=== PATIENT | female | born 1950 | race Caucasian/White ===

== ENCOUNTER → 2016-09-25 | Outpatient (CLI) | payer OTHER ==
[2016-05-13 07:57] VITALS: BP 113/65
--- NOTE | 2016-09-25 13:56 | CT ---
STUDY: CT PARANASAL SINUSES WITHOUT CONTRAST HISTORY: Chronic lu-ethmoidal sinusitis. Comparison: CT sinuses from August 09, 2016. Technique: Multiple axial images of the paranasal sinuses were obtained without the administration o f IV contrast. Coronal and sagittal reformats were performed and reviewed. Automated exposure contr ol (AEC) was utilized to adjust the MA and/or kV. Findings: Axial images: There is mild mucosal thickening in the right maxillary sinus, and to a lesser extent in the left maxillary sinus. Previously noted air-fluid level right maxillary sinus is resolved. The re is mild mucosal thickening in several ethmoid air cells. The frontal sinus and sphenoid sinus pre dominately clear. No air-fluid levels are identified. There is no evidence of osteoneogenesis. The r etro antral fat is clear. The nasal cavity is within normal limits. There is no significant nasal se ptal deviation. The nasal bone is intact. Reformatted images: The ethmoid roofs are slightly higher on the right than the left. The lamina pap yracea is intact bilaterally. There is no evidence of orbital blowout. The ostiomeatal units are wid ened and predominantly clear. No signficant odontogenic abnormality is identified. Mastoid air cells and middle ear cavities are predominately clear. IMPRESSION: 1. Mild mucosal thickening in maxillary and ethmoid sinuses as described. No evidence of acute sinu sitis at this time. 2. Normal appearing mastoid air cells and middle ear cavities bilaterally. Reported By:
== END ==
LOC: RAD 10:48
PROVIDERS: ATTEND Nurse Practitioner Family
DX: J32.2 Chronic ethmoidal sinusitis (principal)
CPT/HCPCS: 70486

== ENCOUNTER → 2016-10-23 | Outpatient (CLI) | payer OTHER ==
[2016-05-13 07:57] VITALS: BP 113/65
--- NOTE | 2016-10-23 14:51 | CT ---
HISTORY: Osteoporosis, back pain Study: CT thoracic spine without contrast Comparison: Chest CT 11/25/2014 Technique: Multiple axial images of the thoracic spine were obtained from the thoracic inlet to the thoracolumbar junction. Sagittal and coronal reconstructions were performed and reviewed. Dose red uction techniques including Automated Exposure Control (AEC) and adjustment of mA and kV were utiliz ed. Findings: Normal alignment of the thoracic spine is maintained. Vertebral body heights are preserved. The di sc spaces are normal. The posterior elements and central canal appear unremarkable. No significant p araspinal soft tissue injury can be identified. The visualized lungs are clear. There is osteopenia noted which reduces sensitivity to detect nondisplaced fractures. There is a large hiatal hernia wit h partial intrathoracic stomach. There is a partially visualized pacemaker in the left chest wall. IMPRESSION: 1.No acute osseous abnormality of the thoracic spine. Reported By:
--- NOTE | 2016-10-23 14:56 | CT ---
HISTORY: Osteoporosis, back pain Study: CT lumbar spine without contrast Comparison: None Technique: Multiple axial images of the lumbar spine were obtained from the thoracolumbar junction to the sacrum without the administration of IV contrast. Sagittal and coronal reformats were perfor med and reviewed. Dose reduction techniques including Automated Exposure Control (AEC) and adjustme nt of mA and kV were utilized. Findings: Alignment of the lumbar spine is maintained. No evidence for acute fracture or subluxation identifi ed. Vertebral body heights are preserved. There is degenerative disc space narrowing and vacuum phe nomenon at L2-L3. There is associated disc space narrowing anteriorly where large sclerotic osteophy mando are noted. The disc spaces are otherwise within normal limits. There is diffuse lumbar spondylos is. Facet joints are unremarkable. No significant facet joint arthropathy. There is extensive sigmo id diverticulosis noted. Prior cholecystectomy. The surrounding soft tissues are otherwise unremarka ble. IMPRESSION: 1. Degenerative disc disease most prominent at L2-L3 as described. 2. No acute osseous abnormality of the lumbar spine. Reported By:
== END | disposition home or self-care (01) | DRG 552 ==
LOC: RAD 13:54
PROVIDERS: ATTEND Psychiatry & Neurology Neurology
DX: M54.89 Other dorsalgia (principal); M47.896 Other spondylosis, lumbar region; M51.36 Other intervertebral disc degeneration, lumbar region
CPT/HCPCS: 72128; 72131

== ENCOUNTER → 2016-12-13 | Outpatient (CLI) | payer OTHER ==
[2016-05-13 07:57] VITALS: BP 113/65
[2016-12-13 11:23] LABS: C-REACTIVE PROTEIN 1.6 mg/L (0-3.0); CHOL/HDL RATIO 3.2 (0.0-5.0); URIC ACID 5.8 mg/dL (2.6-6.0)
== END ==
LOC: LAB 10:13
PROVIDERS: ATTEND Nurse Practitioner Family
DX: E78.4 Other hyperlipidemia (principal); M25.571 Pain in right ankle and joints of right foot; M79.671 Pain in right foot; M79.672 Pain in left foot
CPT/HCPCS: 36415; 80061; 84550; 85652; 86140

== ENCOUNTER 2016-12-21 15:02 | Emergency (ER) | payer OTHER ==
[2016-12-21 15:08] VITALS: BP 120/80; BMI 35.1
[2016-12-21] MEDS ORDERED: FLAGYL TAB 500 MG PO STA (15:29)
[2016-12-21] MEDS ORDERED: ROCEPHIN VIAL 1 GM IM ONE (15:29)
[2016-12-21] MEDS ORDERED: DEMEROL INJ IM ONE (15:29)
[2016-12-21] MEDS ORDERED: PHENERGAN INJ 25 MG IM ONE (15:30)
[2016-12-21] MEDS ORDERED: DEMEROL INJ ONE (15:33)
[2016-12-21] MEDS ORDERED: XYLOCAINE 1 % (PLAIN) ONE (15:33)
[2016-12-21] MEDS ORDERED: PHENERGAN INJ 25 MG ONE (15:33)
[2016-12-21] MEDS ORDERED: ROCEPHIN VIAL 1 GM ONE (15:33)
[2016-12-21] MEDS ORDERED: FLAGYL TAB 250 MG PO ONE (15:33)
--- NOTE | 2016-12-21 15:33 | DR.GENAD ---
HPI - PCP Primary Care Physician: jayda - Complaint/Symptoms Chief Complaint Doctors Comments: Patient states she has a history of diverticulitis and she had some corn and cucumbers yesterday with left lower quadrant pain today. She denies fever, chills, cold, cough, nausea, vomiting, diarrhea, mona or hematuria. States she was admitted her with diverticulitis before and she came early to try not let it get as bad. She has been staying on her diet. Chief Complaint:: patient stated she has a hx of diverticulitis and she ate corn yesterday and today she has lower left abd pain and swelling. - Nurses notes reviewed Nurses Notes Review: Yes - Source History Provided: Patient - Mode of Arrival Mode of Arrival: Ambulatory - Timing Onset of Chief Complaint: 12/20/16 Came on: Gradually - Duration Duration: Constant How lon Duration: Days - Location Location: left lower abdominal pain - Severity Severity: Moderate - Modifying Factors Worsens:: palpation and movement Improves:: remaining still and lying down PMH - PMH Past Medical History: Yes Past Medical History: Arthritis, Hypertension, Ventricular Tachycardia Past Surgical History: Yes Surgical History: Cholecystectomy, Tonsillectomy, Other - Family History History of Family Medical Conditions: Yes Family Medical History: Diabetes Mellitus, [place], Hypertension - Social History Does patient currently use any type of tobacco product: No Have you used tobacco products in the last 12 months: No Type of Tobacco Use: None Does any household member use tobacco: No Alcohol Use: None Do you use any recreational Drugs:: No Lives With: Family Lives Where: Home - infectious screening In the last 2 months have you had wt loss of >10#?: NO Have you had fever, night sweats or hemotysis?: No Have you traveled outside the country in the last 6 months?: No Isolation: Standard ROS - Review of Systems Constitutional: No Symptoms Reported Eyes: No Symptoms Reported. negative: See HPI, Eye Pain, Blurred Vision, Tearing, Discharge, Photophobia, Diplopia, Other ENTM: No Symptoms Reported Respiratoy: No Symptoms Reported Cardiovascular: No Symptoms Reported Gastrointestinal/Abdominal: No Symptoms Reported, Abdominal Pain. negative: See HPI, Constipation, Diarrhea, Nausea, Vomiting, Food Intolerance, Other Genitourinary: No Symptoms Reported Neurological: No Symptoms Reported Musculoskeletal: No Symptoms Reported Integumentary: No Symptoms Reported Hematologic/Lymphatic: No Symptoms Reported Endocrine: No Symptoms Reported Psychiatric: No Symptoms Reported PE - Vital Signs Vitals: Temperature 98.1 F Pulse Rate 75 Respiratory Rate 16 Blood Pressure [Left Arm] 113/65 Blood Pressure [Right Arm] 104/57 Blood Pressure 120/80 O2 Sat by Pulse Oximetry 100 - General Limitations: No Limitations General Appearance: Alert, In Distress (moderate), Obese - Head Head Exam: Normal Inspection, Atraumatic, Normocephalic - Eyes Eye exam: Normal Appearance, PERRL, EOMI. negative: Scleral Icterus, Conjunctival Injection, Nystagmus, Miosis, Mydrasis, Periorbital Swelling, Periorbital Tenderness, Other - ENT ENT Exam: Normal Exam, Normal Oropharynx, Normal External Ear Exam, Mucous Membranes Moist, TM's Normal Bilaterally External Ear Exam: Normal External Inspection. negative: Auricular Hematoma, Auricular Trauma, Mastoid Tenderness, Pain with Movement, External Tenderness, Periauricular Adenopathy, Other TM/Canal Exam: Bilateral Normal Nose Exam: Normal Nose Exam Mouth Exam: Normal Inspection Throat Exam: Normal Inspection - Neck Neck Exam: Normal Inspection, Full ROM, Trachea Midline - Chest Chest Inspection: Normal Inspection, Symmetric Chest Wall Rise - Respiratory Respiratory Exam: Normal Lung Sounds Bilat Respiratory Exam: Bilateral Clear to Auscultation - Cardiovascular Cardiovascular Exam: Regular Rate, Normal Rhythm, Normal Heart Sounds. negative : Bradycardia, Tachycardia, Irregular Rhythm, Systolic Murmur, Diastolic Murmur , Rubs, Gallop, Clicks, JVD, +S1, +S2, +S3, +S4, Other - Abdominal Exam Abdominal Exam: Normal Inspection, Normal Bowel Sounds, Soft, Tenderness (left lower quadrant pain with guarding), Guarding, Dimnished Bowel Sounds Abdominal Tenderness: LLQ, Moderate - Extremities Extremities Exam: Normal Inspection, Full ROM, Normal Capillary Refill. negative: Tenderness, Edema, Joint Swelling, Calf Tenderness, Other - Back Back Exam: Normal Inspection, Full ROM. negative: Tenderness, (R) CVA Tenderness, (L) CVA Tenderness, Muscle Spasm, Paraspinal Tenderness, Vertebral Tenderness, Rashes, (R) Sciatic Notch Tenderness, (L) Sciatic Notch Tendern, (R ) Straight Leg Raise, (L) Straight Leg Raise, Other - Neurologic Neurological Exam: Alert, Oriented X3, CN II-XII Intact, Normal Gait, Reflexes Normal - Psychiatric Psychiatric Exam: Normal Affect, Normal Mood - Skin Skin Exam: Warm, Dry, Intact, Normal Color - Diagnosis Discharge Problem: Abdominal pain Diverticulosis of colon Qualifiers: Diverticulosis bleeding: diverticulosis without bleeding Qualified Code(s): K57.30 - Diverticulosis of large intestine without perforation or abscess without bleeding Diverticulitis Qualifiers: Diverticulitis site: large intestine Diverticulitis bleeding: without bleeding - Discharge Plan Disposition: HOME, SELF-CARE Condition: Stable Prescriptions: Ciprofloxacin HCl [CIPRO 500 MG TAB *] 500 mg PO Q12H #20 tab Hydrocodone-Acet 7.5 mg/325 mg [[place] 7.5/325 mg Tab] 1 tab PO Q6H PRN #28 tab PRN Reason: Pain Metronidazole [FLAGYL 500 MG *] 500 mg PO TID #30 tab - Follow ups/Referrals Follow ups/Referrals: PETAR PRESLEY [Primary Care Provider] - 3 days - Instructions Instructions: Diverticulitis, Abdominal Pain, Adult, [id number]
== END 2016-12-21 15:58 | disposition home or self-care (01) ==
LOC: ER 15:10
DX: K57.30 Diverticulosis of large intestine without perforation or abscess without bleeding (principal); K57.92 Diverticulitis of intestine, part unspecified, without perforation or abscess without bleeding; R10.32 Left lower quadrant pain
CPT/HCPCS: 96372; 99282; J0696; J2001; J2175; J2550

== ENCOUNTER → 2016-12-25 | Outpatient (CLI) | payer OTHER ==
[2016-12-21 15:08] VITALS: BP 120/80
[2016-12-25 15:34] LABS: BASOPHILS # (AUTO) 0.1 X10^3/uL (0.0-0.1); BASOPHILS % (AUTO) 0.8 % (0.2-1.0); EOSINOPHILS # (AUTO) 0.2 x10^3/uL (0.0-0.2); EOSINOPHILS % (AUTO) 2.1 % (0.9-2.9); HEMATOCRIT 39.9 % (36.0-47.0); HEMOGLOBIN 13.3 g/dL (12.0-16.0); LYMPHOCYTES # (AUTO) 1.9 X10^3/uL (1.3-2.9); LYMPHOCYTES % (AUTO) 24.1 % (21.0-51.0); MEAN CORPUSCULAR HEMOGLOBIN 28.5 pg (27.0-34.0); MEAN CORPUSCULAR HGB CONC 33.2 g/dL (33.0-35.0); MEAN CORPUSCULAR VOLUME 85.8 fL (80.0-100.0); MEAN PLATELET VOLUME 10.4 fL (7.4-11.0); MONOCYTES # (AUTO) 0.4 x10^3/uL (0.3-0.8); MONOCYTES % (AUTO) 5.3 % (0.0-13.0); NEUTROPHILS # (AUTO) 5.3 x10^3/uL (2.2-4.8); NEUTROPHILS % (AUTO) 67.7 % (42.0-75.0); PLATELET COUNT 134 X10^3/uL (150.0-450.0); RED BLOOD COUNT 4.65 X10^6/uL (3.5-5.4); RED CELL DISTRIBUTION WIDTH 14.7 % (11.6-16.5); WHITE BLOOD COUNT 7.8 X10^3/uL (3.6-10.0)
[2016-12-25 15:54] LABS: BLOOD UREA NITROGEN 9 mg/dL (7-18); CALCIUM 9.2 mg/dL (8.5-10.1); CARBON DIOXIDE 27.2 mmol/L (21-32); CHLORIDE 108 mmol/L (98-107); COR NA(FOR HYPERGLY) 142 mmol/L (136-145); GLUCOSE 148 mg/dL (65-99); SODIUM 141 mmol/L (136-145); eGFR BLACK RACES > 60 (>60); eGFR NON BLACK RACES > 60 (>60)
[2016-12-25 16:26] LABS: ERYTHROCYTE SEDIMENTATION RATE 17 MM/HOUR (0-20)
--- NOTE | 2016-12-25 16:41 | RAD ---
ACUTE ABDOMINAL SERIES CLINICAL HISTORY: 66-year-old female with acute abdominal pain and history diverticulosis. COMPARISON: Chest radiograph May 10, 2016, CT abdomen and pelvis May 10, 2016.. FINDINGS: AICD is unchanged. PA chest radiograph demonstrates normal cardiopericardial silhouette. There is no focal consolidation, pleural effusion or pneumothorax. Pulmonary vascularity is normal. Abdominal radiographs demonstrate a nonobstructive bowel gas pattern. Gas and stool are seen through out the colon. There is no small bowel distention. There is no radiographic evidence of pneumoperito neum. Imaged osseous structures are intact. Soft tissues are unremarkable. IMPRESSION: 1. No acute cardiopulmonary process. 2. Nonobstructive bowel gas pattern without radiographic evidence of pneumoperitoneum. Reported By:
== END ==
LOC: LAB 15:10
PROVIDERS: ATTEND Nurse Practitioner Family
DX: R10.84 Generalized abdominal pain (principal)
CPT/HCPCS: 36415; 74022; 80048; 85025; 85652; 86140

== ENCOUNTER → 2017-03-07 | Outpatient (CLI) | payer OTHER ==
[2017-03-07 12:02] LABS: BASOPHILS % (AUTO) 0.4 % (0.2-1.0); EOSINOPHILS # (AUTO) 0.1 x10^3/uL (0.0-0.2); EOSINOPHILS % (AUTO) 0.9 % (0.9-2.9); HEMATOCRIT 34.9 % (36.0-47.0); HEMOGLOBIN 11.8 g/dL (12.0-16.0); LYMPHOCYTES # (AUTO) 1.2 X10^3/uL (1.3-2.9); MEAN CORPUSCULAR HGB CONC 33.9 g/dL (33.0-35.0); MEAN CORPUSCULAR VOLUME 85.6 fL (80.0-100.0); MEAN PLATELET VOLUME 9.6 fL (7.4-11.0); MONOCYTES # (AUTO) 0.7 x10^3/uL (0.3-0.8); MONOCYTES % (AUTO) 6.7 % (0.0-13.0); NEUTROPHILS # (AUTO) 8.3 x10^3/uL (2.2-4.8); PLATELET COUNT 141 X10^3/uL (150.0-450.0); RED BLOOD COUNT 4.07 X10^6/uL (3.5-5.4); RED CELL DISTRIBUTION WIDTH 15.4 % (11.6-16.5); WHITE BLOOD COUNT 10.4 X10^3/uL (3.6-10.0)
[2017-03-07 12:26] LABS: ALANINE AMINOTRANSFERASE 26 Units/L (12-78); ALBUMIN 3.4 g/dL (3.4-5.0); ALKALINE PHOSPHATASE 88 Units/L (46-116); ASPARTATE AMINO TRANSFERASE 19 Units/L (15-37); BLOOD UREA NITROGEN 12 mg/dL (7-18); CALCIUM 8.8 mg/dL (8.5-10.1); CHLORIDE 106 mmol/L (98-107); CHOLESTEROL 164 mg/dL (0-200); GLUCOSE 91 mg/dL (65-99); HDL CHOLESTEROL 55 mg/dL (40-60); SODIUM 142 mmol/L (136-145); TOTAL PROTEIN 7.1 g/dL (6.4-8.2); TRIGLYCERIDES 59 mg/dL (0-150); eGFR BLACK RACES > 60 (>60); eGFR NON BLACK RACES > 60 (>60)
[2017-03-07 12:37] LABS: ERYTHROCYTE SEDIMENTATION RATE 30 MM/HOUR (0-20)
--- NOTE | 2017-03-07 13:36 | RAD ---
HISTORY: Low back pain Study: Lumbar spine AP, lateral, spot, obliques Comparison: None Findings: The bones are osteopenic. The alignment is normal. The vertebral bodies are of average height. Degene rative disc disease is present at L2-3 no spondylolysis or spondylolisthesis is identified. The pedic les are intact. The SI joints are normal. The facet joints are normal. IMPRESSION: Degenerative disc disease L2-3 Reported By:
--- NOTE | 2017-03-07 13:37 | RAD ---
HISTORY: Dyspnea, fall, left rib pain Study: Chest PA and lateral Comparison: May 10, 2016 Findings: The trachea is midline. The cardiac silhouette is upper limits normal in size. No congestive heart f ailure is noted.. The lungs are clear without focal infiltrate or effusion. The bony thorax is unre markable. There is a pacemaker present on the left. IMPRESSION: 1. No acute cardiopulmonary disease. Reported By:
--- NOTE | 2017-03-07 13:40 | RAD ---
HISTORY: Bilateral hip pain Study: Right hip two views, AP, frog-leg lateral, AP pelvis Comparison: None Findings: A single frontal view of the pelvis demonstrates the pelvic ring to be intact. No evidence for acute cortical disruption or dislocation of the hip can be observed. Frog leg views of the hip fails to d emonstrate evidence for fracture or significant joint abnormality. Impression: 1. Negative exam. HISTORY: Injury, fall, left hip pain Study: Left hip AP, frog-leg lateral, AP pelvis Comparison: None Findings: A single frontal view of the pelvis demonstrates the pelvic ring to be intact. No evidence for acute cortical disruption or dislocation of the hip can be observed. Frog leg views of the hip fails to d emonstrate evidence for fracture or significant joint abnormality. Impression: 1. Negative exam. Reported By:
--- NOTE | 2017-03-07 13:41 | RAD ---
HISTORY: Fall, head injury Study: Skull four view AP, [place], both laterals Comparison: None Findings: The calvarium is intact. The sella is normal. The sinuses are clear. The mastoid air cells are clear. IMPRESSION: No significant abnormality identified Reported By:
== END ==
LOC: LAB 10:46
PROVIDERS: ATTEND Nurse Practitioner Family
DX: I10 Essential (primary) hypertension (principal); L93.0 Discoid lupus erythematosus; E78.4 Other hyperlipidemia; W08.XXXA Fall from other furniture, initial encounter; R06.00 Dyspnea, unspecified; M54.5 Low back pain; M25.551 Pain in right hip; M25.552 Pain in left hip
CPT/HCPCS: 36415; 70260; 71020; 72110; 73521; 80053; 80061; 85025; 85652; 86140; 86160; 86225

== ENCOUNTER 2017-03-27 19:47 | Inpatient (IN) | payer OTHER ==
[2017-03-27 19:54] VITALS: BMI 33.3
--- NOTE | 2017-03-27 20:27 | DR.GENAD ---
HPI - Complaint/Symptoms Chief Complaint:: PT C/O NAUSEA, SOMMER, VOMITING, LLQ PAIN - Nurses notes reviewed Nurses Notes Review: Yes - Source History Provided: Patient - Mode of Arrival Mode of Arrival: Ambulatory - Timing Onset of Chief Complaint: 03/27/17 PMH - PMH Past Medical History: Yes Past Medical History: Anxiety, GERD, Hypertension Past Medical History Comment: LUPUS, FIBROMYLAGIA. MARYANNE COHEN Past Surgical History: Yes Surgical History: Cholecystectomy, BUSINESS MACHINE OPERATOR Surgery, Tonsillectomy - Family History History of Family Medical Conditions: Yes Family Medical History: Diabetes Mellitus, Cancer, [place], Hypertension - Social History Do you use any recreational Drugs:: No - infectious screening Have you traveled outside the country in the last 6 months?: No PE - Vital Signs Vitals: Temperature 98.2 F Pulse Rate 78 Respiratory Rate 18 Blood Pressure [Left Arm] 113/65 Blood Pressure [Right Arm] 104/57 Blood Pressure 120/78 O2 Sat by Pulse Oximetry 97 ROR - Labs Reviewed Result Diagrams: 03/27/17 20:40 03/27/17 20:40 Laboratory: WBC 11.2 X10^3/uL (3.6-10.0) H 03/27/17 20:40 RBC 4.45 X10^6/uL (3.5-5.4) 03/27/17 20:40 Hgb 12.8 g/dL (12.0-16.0) 03/27/17 20:40 Hct 38.5 % (36.0-47.0) 03/27/17 20:40 MCV 86.5 fL (80.0-100.0) 03/27/17 20:40 MCH 28.8 pg (27.0-34.0) 03/27/17 20:40 MCHC 33.3 g/dL (33.0-35.0) 03/27/17 20:40 RDW 15.2 % (11.6-16.5) 03/27/17 20:40 Plt Count 132 X10^3/uL (150.0-450.0) L 03/27/17 20:40 MPV 10.4 fL (7.4-11.0) 03/27/17 20:40 Neut % 76.3 % (42.0-75.0) H 03/27/17 20:40 Lymph % 13.9 % (21.0-51.0) L 03/27/17 20:40 [place] % 8.8 % (0.0-13.0) 03/27/17 20:40 Eos % 0.4 % (0.9-2.9) L 03/27/17 20:40 Baso % 0.6 % (0.2-1.0) 03/27/17 20:40 Neut # 8.6 x10^3/uL (2.2-4.8) H 03/27/17 20:40 Lymph # 1.6 X10^3/uL (1.3-2.9) 03/27/17 20:40 [place] # 1.0 x10^3/uL (0.3-0.8) H 03/27/17 20:40 Eos # 0.0 x10^3/uL (0.0-0.2) 03/27/17 20:40 Baso # 0.1 X10^3/uL (0.0-0.1) 03/27/17 20:40 Absolute Nucleated RBC 0.0 /100WBC 03/27/17 20:40 Sodium 141 mmol/L (136-145) 03/27/17 20:40 Corrected Sodium TNP 03/27/17 20:40 Potassium 3.5 mmol/L (3.5-5.1) 03/27/17 20:40 Chloride 105 mmol/L (98-107) 03/27/17 20:40 Carbon Dioxide 28.9 mmol/L (21-32) 03/27/17 20:40 BUN 10 mg/dL (7-18) 03/27/17 20:40 Creatinine 0.96 mg/dL (0.55-1.02) 03/27/17 20:40 Est GFR (MDRD) Af Amer > 60 (>60) 03/27/17 20:40 Est GFR (MDRD) Non-Af > 60 (>60) 03/27/17 20:40 Glucose 96 mg/dL (65-99) 03/27/17 20:40 Calcium 9.0 mg/dL (8.5-10.1) 03/27/17 20:40 Corrected Calcium TNP 03/27/17 20:40 Total Bilirubin 0.50 mg/dL (0.2-1.0) 03/27/17 20:40 AST 21 Units/L (15-37) 03/27/17 20:40 ALT 24 Units/L (12-78) 03/27/17 20:40 Alkaline Phosphatase 93 Units/L (46-116) 03/27/17 20:40 Total Protein 7.4 g/dL (6.4-8.2) 03/27/17 20:40 Albumin 3.7 g/dL (3.4-5.0) 03/27/17 20:40 Globulin 3.7 g/dL (2.5-4.5) 03/27/17 20:40 Albumin/Globulin Ratio 1.0 Ratio (1.1-2.1) L 03/27/17 20:40 Amylase 55 Units/L (25-115) 03/27/17 20:40 Lipase 146 Units/L (73-393) 03/27/17 20:40 Specimen Type Clean catch urine 03/27/17 20:40 Urine Color Yellow (YELLOW) 03/27/17 20:40 Urine Appearance Hazy (CLEAR) 03/27/17 20:40 Urine pH 5.0 (5.0 - 8.0) 03/27/17 20:40 Ur Specific [place] 1.025 (1.000-1.030) 03/27/17 20:40 Urine Protein 2+ (NEGATIVE) 03/27/17 20:40 Urine Glucose (UA) Negative (NEGATIVE) 03/27/17 20:40 Urine Ketones 1+ (NEGATIVE) 03/27/17 20:40 Urine Occult Blood Negative (NEGATIVE) 03/27/17 20:40 Urine Nitrite Negative (NEGATIVE) 03/27/17 20:40 Urine Bilirubin Negative (NEGATIVE) 03/27/17 20:40 Urine Urobilinogen Normal (NORMAL) 03/27/17 20:40 Ur Leukocyte Esterase 2+ (NEGATIVE) 03/27/17 20:40 Urine RBC 0-2 /HPF (NEGATIVE) 03/27/17 20:40 Urine WBC 0-3 /HPF (NEGATIVE) 03/27/17 20:40 Ur Squamous Epith Cells Rare /HPF (NEGATIVE) 03/27/17 20:40 Urine Bacteria Trace /HPF (NEGATIVE) 03/27/17 20:40 Urine Mucus Moderate /HPF (NEGATIVE) 03/27/17 20:40 Ur Culture Indicated? No/not indicated 03/27/17 20:40 - Discharge Plan Condition: Stable - Follow ups/Referrals Follow ups/Referrals: PETAR PRESLEY [Primary Care Provider] - 3 days - Instructions
[2017-03-27 20:52] LABS: BASOPHILS # (AUTO) 0.1 X10^3/uL (0.0-0.1); BASOPHILS % (AUTO) 0.6 % (0.2-1.0); BILIRUBIN,URINE NEGATIVE (NEGATIVE); BLOOD/HEMOGLOBIN,URINE NEGATIVE (NEGATIVE); EOSINOPHILS % (AUTO) 0.4 % (0.9-2.9); GLUCOSE, URINE NEGATIVE (NEGATIVE); HEMATOCRIT 38.5 % (36.0-47.0); HEMOGLOBIN 12.8 g/dL (12.0-16.0); KETONES,URINE 1+ (NEGATIVE); LEUKOCYTE ESTERASE ,URINE 2+ (NEGATIVE); LYMPHOCYTES # (AUTO) 1.6 X10^3/uL (1.3-2.9); LYMPHOCYTES % (AUTO) 13.9 % (21.0-51.0); MEAN CORPUSCULAR HEMOGLOBIN 28.8 pg (27.0-34.0); MEAN CORPUSCULAR HGB CONC 33.3 g/dL (33.0-35.0); MEAN CORPUSCULAR VOLUME 86.5 fL (80.0-100.0); MEAN PLATELET VOLUME 10.4 fL (7.4-11.0); MONOCYTES % (AUTO) 8.8 % (0.0-13.0); NEUTROPHILS # (AUTO) 8.6 x10^3/uL (2.2-4.8); NEUTROPHILS % (AUTO) 76.3 % (42.0-75.0); NITRITES,URINE NEGATIVE (NEGATIVE); PLATELET COUNT 132 X10^3/uL (150.0-450.0); PROTEIN,URINE 2+ (NEGATIVE); RED BLOOD COUNT 4.45 X10^6/uL (3.5-5.4); RED CELL DISTRIBUTION WIDTH 15.2 % (11.6-16.5); UROBILINOGEN,URINE NORMAL (NORMAL); WHITE BLOOD COUNT 11.2 X10^3/uL (3.6-10.0)
[2017-03-27 21:02] LABS: ALANINE AMINOTRANSFERASE 24 Units/L (12-78); ALBUMIN 3.7 g/dL (3.4-5.0); ALKALINE PHOSPHATASE 93 Units/L (46-116); AMYLASE 55 Units/L (25-115); ASPARTATE AMINO TRANSFERASE 21 Units/L (15-37); BLOOD UREA NITROGEN 10 mg/dL (7-18); CARBON DIOXIDE 28.9 mmol/L (21-32); CHLORIDE 105 mmol/L (98-107); CREATININE 0.96 mg/dL (0.55-1.02); LIPASE 146 Units/L (73-393); SODIUM 141 mmol/L (136-145); TOTAL PROTEIN 7.4 g/dL (6.4-8.2); eGFR BLACK RACES > 60 (>60); eGFR NON BLACK RACES > 60 (>60)
[2017-03-27 21:08] LABS: APPEARANCE,URINE HAZY (CLEAR); BACTERIA,URINE TRACE /HPF (NEGATIVE); COLOR,URINE YELLOW (YELLOW); MUCUS,URINE MODERATE /HPF (NEGATIVE); RBC,URINE 0-2 /HPF (NEGATIVE); SQUAMOUS EPITHELIAL CELL,UR RARE /HPF (NEGATIVE)
--- NOTE | 2017-03-27 21:38 | CT ---
CT abdomen and pelvis without contrast Indication: Left upper quadrant pain Technique: Helical CT images of the abdomen and pelvic were obtained without IV contrast. Reformatted images in the coronal and sagittal planes were also generated for review. Comparison: None Findings: The visualized lung bases are clear. No aggressive osseous lesions are identified. The gallbladder is surgically absent. Within the limits of a noncontrast exam, there is a lobulated 2 .6 cm hypoattenuating lesion within the left hepatic lobe (image 15, series 3), likely a cyst or cat ngioma. The unenhanced liver, spleen, atrophic pancreas, adrenals and kidneys are otherwise grossly u nremarkable. There is a moderate sized sliding hiatal hernia. There is moderate colonic diverticulosi s with moderate thickening and pericolonic stranding about the descending-proximal sigmoid junction, compatible with acute diverticulitis. No associated abscess or findings to suggest perforation are se en. Remaining GI tract is unremarkable. The abdominal aorta is mildly calcified without aneurysm. The urinary bladder is collapsed. The uteru s is present. No free air, free fluid or lymphadenopathy is identified. Impression: 1. Uncomplicated acute diverticulitis of descending-sigmoid colonic junction. If not recently perform ed, colonoscopy following resolution of symptoms is recommended to exclude underlying mass. 2. Probable left hepatic lobe cyst/hemangioma, moderate sized sliding hiatal hernia and additional in cidental findings, as above. Reported By:
[2017-03-27] MEDS ORDERED: CIPRO IV 400 MG PREMIX* 400 MG/200 ML IV.SOLN. IV ONE (22:39)
[2017-03-27] MEDS ORDERED: FLAGYL IV PREMIX 500 MG BAG 500 MG/100 ML BAG IV ONE ×2 (22:39→22:47)
[2017-03-27] MEDS ORDERED: ZOFRAN INJ 4 MG VIAL IVP ONE (22:41)
[2017-03-27] MEDS ORDERED: DEMEROL INJ IVP ONE (22:41)
[2017-03-27] MEDS ORDERED: NS 1/2 1000 ML IV 1,000 ML IV ONE (22:46)
[2017-03-27] MEDS ORDERED: ZOFRAN INJ 4 MG VIAL ONE (22:46)
[2017-03-27] MEDS ORDERED: DEMEROL INJ ONE (22:47)
[2017-03-27] MEDS ORDERED: CIPRO IV 400 MG PREMIX* 0 MG/0 ML IV.SOLN. IV ONE (22:47)
[2017-03-27] MEDS: NS 1000 ML 1,000 ML IV SCH (23:05)
[2017-03-28] MEDS: AMBIEN PO PRN ×2 (01:47→22:00)
[2017-03-28] MEDS: FLAGYL IV PREMIX 500 MG BAG 500 MG/100 ML BAG IV SCH ×4 (03:30→21:55)
[2017-03-28] MEDS: DEMEROL INJ IVP PRN ×3 (03:30→22:01)
[2017-03-28 07:03] LABS: BASOPHILS % (AUTO) 0.4 % (0.2-1.0); EOSINOPHILS # (AUTO) 0.1 x10^3/uL (0.0-0.2); EOSINOPHILS % (AUTO) 0.8 % (0.9-2.9); HEMATOCRIT 35.5 % (36.0-47.0); HEMOGLOBIN 11.9 g/dL (12.0-16.0); LYMPHOCYTES # (AUTO) 1.5 X10^3/uL (1.3-2.9); LYMPHOCYTES % (AUTO) 19.7 % (21.0-51.0); MEAN CORPUSCULAR HEMOGLOBIN 29.2 pg (27.0-34.0); MEAN CORPUSCULAR HGB CONC 33.5 g/dL (33.0-35.0); MEAN CORPUSCULAR VOLUME 87.4 fL (80.0-100.0); MEAN PLATELET VOLUME 10.5 fL (7.4-11.0); MONOCYTES # (AUTO) 0.6 x10^3/uL (0.3-0.8); MONOCYTES % (AUTO) 7.9 % (0.0-13.0); NEUTROPHILS # (AUTO) 5.6 x10^3/uL (2.2-4.8); NEUTROPHILS % (AUTO) 71.2 % (42.0-75.0); PLATELET COUNT 103 X10^3/uL (150.0-450.0); RED BLOOD COUNT 4.06 X10^6/uL (3.5-5.4); RED CELL DISTRIBUTION WIDTH 15.5 % (11.6-16.5); WHITE BLOOD COUNT 7.8 X10^3/uL (3.6-10.0)
[2017-03-28 07:14] LABS: ALANINE AMINOTRANSFERASE 19 Units/L (12-78); ALBUMIN 3.3 g/dL (3.4-5.0); ALKALINE PHOSPHATASE 81 Units/L (46-116); ASPARTATE AMINO TRANSFERASE 18 Units/L (15-37); BLOOD UREA NITROGEN 8 mg/dL (7-18); CALCIUM 8.9 mg/dL (8.5-10.1); CARBON DIOXIDE 28.1 mmol/L (21-32); CHLORIDE 108 mmol/L (98-107); COR CA(FOR HYPOALB) 9.5 mg/dL (8.5-10.1); CREATININE 0.78 mg/dL (0.55-1.02); SODIUM 143 mmol/L (136-145); TOTAL PROTEIN 6.8 g/dL (6.4-8.2); eGFR BLACK RACES > 60 (>60); eGFR NON BLACK RACES > 60 (>60)
[2017-03-28] MEDS: CIPRO IV 400 MG PREMIX* 400 MG/200 ML IV.SOLN. IV SCH ×2 (08:51→14:13)
[2017-03-28] MEDS: NS 1000 ML 1,000 ML IV SCH ×3 (08:51→21:54)
--- NOTE | 2017-03-28 10:37 | DR.H&P ---
H&P - History & Physical for Day of: H&P Date: 03/27/17 - Chief Complaint Chief Complaint: LLQ ABDOMINAL PAIN, N/V, HEADACHE - Allergies Allergies/Adverse Reactions: Allergies Allergy/AdvReac Type Severity Reaction Status Date / Time No Known Drug Allergies Allergy Verified 03/28/17 08:59 - History of Present Illness History of Present Illness: IS A 66 YEAR OLD PATIENT OF OURS WHO PRESENTED TO THE EMERGENCY ROOM WITH COMPLAINTS OF LLQ PAIN, NAUSEA, VOMITING, AND HEADACHE. PATIENT REPORTED THAT SYMPTOMS BEGAN ONE DAY PRIOR TO ARRIVAL AT ER. ON ARRIVAL TO ER, VITALS WERE 98.2-78-18-97%-120/78. LABS AND CT WERE OBTAINED. ABNORMAL LAB VALUES INCLUDE THE FOLLOWING: WBC 11.2, PLT COUNT 132. CT ABD/PELVIS WITH CONTRAST REPORTED UNCOMLICATED ACUTE DIVERTICULITIS OF DESCENDING-SIGMOID COLONIC JUNCTION WITHOUT ABSCESS OR PERFORATION SEEN, PROBABLE LEFT HEPATIC LOBE CYST/HEMANGIOMA, MODERATE SIZED SLIDING HIATAL HERNIA. WE ADMITTED PATIENT FOR FURTHER TREATMENT AND EVALUATION. WE STARTED HER ON FLAGYL 500MG IV Q6H, FORTAZ 1GM IV Q8H, NS AT 125ML/HR, ZOFRAN 4MG IV Q6H PRN, AND DEMEROL 25MG IV Q4H PRN. WE PLAN TO RECHECK AM LABS AND CONTINUE TO MONITOR PATIENT. - Past Medical History Past Medical History: Anxiety, GERD, Hypertension Additional Medical History: LUPUS, FIBRO, EPSTIEN LOZADA, PACEMAKER, DEFIBRILLATOR - Past Surgical History Surgical History: Cholecystectomy, MIXING ENGINEER Surgery, Tonsillectomy - Family History Family Medical History: Diabetes Mellitus, Cancer, [place], Hypertension - Social History Does patient currently use any type of tobacco product: No Have you used tobacco products in the last 12 months: No Type of Tobacco Use: None Does any household member use tobacco: No Alcohol Use: None Drug Use: None - Medications Home Medications: Hydroxychloroquine Sulfate [PLAQUENIL TAB 200 MG *] 200 mg PO BID 03/28/17 [ History Confirmed 03/28/17] Zolpidem Tartrate [AMBIEN 5 MG *] 5 mg PO HS 03/28/17 [History Confirmed ] - Review of Systems Constitutional: No Symptoms Reported Eyes: No Symptoms Reported ENT: No Symptoms Reported Respiratory: No Symptoms Reported Cardiovascular: No Symptoms Reported Gastrointestinal: See HPI, Nausea, Vomiting, Abdominal Pain Genitourinary: No Symptoms Reported Musculoskeletal: No Symptoms Reported Skin: No Symptoms Reported Neurological: See HPI, Other (HEADACHE) - Physical Exam Vital Signs: Temperature 97 F Pulse Rate [Left Brachial] 77 Pulse Rate [Bilateral Radial] 76 Pulse Rate 78 Respiratory Rate 20 Blood Pressure [Left Arm] 107/57 Blood Pressure [Right Arm] 134/66 Blood Pressure 120/78 O2 Sat by Pulse Oximetry 98 Oriented: Normal Eyes: Normal Ear: Normal Nose: Normal Throat: Normal Respiratory: Clear Throughout Cardiovascular: Normal : Normal Auscultation: Bowel Sounds: Normal Palpation: Normal Tenderness: LLQ Skin: Normal Musculoskeletal: Normal Psychiatric: Normal Mood Description: Calm Affect: Normal Speech Pattern: Clear - Assessment/Plan (1) Diverticulitis Qualifiers: Diverticulitis site: large intestine Diverticulitis bleeding: without bleeding Diverticulitis complication: without perforation or abscess Qualified Code(s): K57.32 - Diverticulitis of large intestine without perforation or abscess without bleeding Status: Acute Plan: FORTAZ 1GM IV Q8H, FLAGYL 500MG IV Q6H, CONTINUE TO MONITOR (2) Severe headache Status: Acute Plan: DEMEROL 25MG IVP Q4H PRN, CONTINUE TO MONITOR
[2017-03-28] MEDS ORDERED: ASPIRIN PO PRN (16:30)
[2017-03-28] MEDS ORDERED: ZyrTEC TAB 10 MG PO PRN (16:30)
[2017-03-28] MEDS: FORTAZ or TAZICEF INJ 2 GM in NS 50 ML IV + SPIKE MINIBAG* 50 ML IV SCH ×2 (17:23→22:01)
[2017-03-28] MEDS ORDERED: LEXAPRO ONE (21:31)
[2017-03-28] MEDS: NEURONTIN CAP 100 MG PO SCH (21:59)
[2017-03-28] MEDS: COLACE CAP 100 MG PO SCH (22:00)
[2017-03-28] MEDS: XANAX PO SCH (22:00)
[2017-03-28] MEDS: BETAPACE AF PO SCH (22:00)
[2017-03-28] MEDS: PLAQUENIL PO SCH (22:00)
[2017-03-28] MEDS: PREVACID PO SCH (22:00)
[2017-03-28] MEDS: COREG TAB 6.25 MG PO SCH (22:00)
[2017-03-28] MEDS: ASPIRIN 81 MG CHEWTAB PO SCH (22:00)
[2017-03-28] MEDS: LEXAPRO PO SCH (22:00)
--- NOTE | 2017-03-28 22:24 | PCM.PROG ---
Progress Note - Progress Note for Day of Date: 03/28/17 - Subjective Subjective: WAS ADMITTED FOR DIVERTICULITIS AND SEVERE HEADACHE. SHE IS ALERT AND ORIENTED, SITTING IN HIGH FOWLERS POSITION IN BED ON MORNING ROUNDS. SHE IS NOTED WITH COMPLAINTS OF ABDOMIAL PAIN. PATIENT REPORTS DIFFUSE PAIN, HOWEVER, STATES THAT PAIN IS GREATEST IN THE LLQ. SHE DENIES HEADACHE THIS MORNING. LUNGS ARE NOTED CLEAR TO AUSCULTATION. ABDOMEN ROUND, SOFT, AND TENDER. NORMAL BOWEL SOUNDS ARE NOTED IN ALL QUADRANTS. VITAL SIGNS THIS MORNING ARE 97.9-75-20-95%-121/62. LABS WERE OBTAINED. ABNORMAL VALUES INCLUDE HGB 11.9, HCT 35.5, GLUCOSE 104, ALBUMIN 3.3, CHLORIDE 108. SHE IS CURRENTLY ON FORTAZ AND FLAGYL TO TREAT DIVERTICULITIS. PATIENT HAD A FULL LIQUID DIET ORDERED, BUT WE WILL DISCONTINUE AND MAKE PATIENT NPO. WE PLAN TO CONTINUE WITH CURRENT PLAN OF CARE AND MEDICATIONS, RECHECK AM LABS, AND FOLLOW UP WITH PATIENT IN THE MORNING. - Past Medical Family Social History Past Med/Fam/Surg Hx: No changes since H&P Allergies: Allergies No Known Drug Allergies Allergy (Verified 03/28/17 08:59) - Review of Systems ROS: No change since H&P - Vital Signs and I&O's Vital Signs: Temperature 98.9 F Pulse Rate [Left Brachial] 75 Pulse Rate [Bilateral Radial] 76 Pulse Rate 78 Respiratory Rate 18 Blood Pressure [Left Arm] 103/59 Blood Pressure [Right Arm] 134/66 Blood Pressure 120/78 O2 Sat by Pulse Oximetry 94 Intake and Output: Intake & Output 03/26/17 03/27/17 03/28/17 03/29/17 11:59 11:59 11:59 11:59 Intake Total 519 1240 Output Total 1000 Balance -481 1240 - Physical Exam Oriented: Normal Eyes: Normal Ear: Normal Nose: Normal Throat: Normal Respiratory: Normal Cardiovascular: Normal : Normal Auscultation: Bowel Sounds: Normal Palpation: Normal Tenderness: Diffuse, LLQ Skin: Normal Musculoskeletal: Normal Psychiatric: Normal Mood Description: Calm Affect: Normal Speech Pattern: Clear, Appropriate - Laboratory and Diagnostics Result Diagrams: 03/28/17 06:13 03/28/17 06:13 Labs: Laboratory WBC 7.8 X10^3/uL (3.6-10.0) 03/28/17 06:13 RBC 4.06 X10^6/uL (3.5-5.4) 03/28/17 06:13 Hgb 11.9 g/dL (12.0-16.0) L 03/28/17 06:13 Hct 35.5 % (36.0-47.0) L 03/28/17 06:13 MCV 87.4 fL (80.0-100.0) 03/28/17 06:13 MCH 29.2 pg (27.0-34.0) 03/28/17 06:13 MCHC 33.5 g/dL (33.0-35.0) 03/28/17 06:13 RDW 15.5 % (11.6-16.5) 03/28/17 06:13 Plt Count 103 X10^3/uL (150.0-450.0) L 03/28/17 06:13 MPV 10.5 fL (7.4-11.0) 03/28/17 06:13 Neut % 71.2 % (42.0-75.0) 03/28/17 06:13 Lymph % 19.7 % (21.0-51.0) L 03/28/17 06:13 [place] % 7.9 % (0.0-13.0) 03/28/17 06:13 Eos % 0.8 % (0.9-2.9) L 03/28/17 06:13 Baso % 0.4 % (0.2-1.0) 03/28/17 06:13 Neut # 5.6 x10^3/uL (2.2-4.8) H 03/28/17 06:13 Lymph # 1.5 X10^3/uL (1.3-2.9) 03/28/17 06:13 [place] # 0.6 x10^3/uL (0.3-0.8) 03/28/17 06:13 Eos # 0.1 x10^3/uL (0.0-0.2) 03/28/17 06:13 Baso # 0.0 X10^3/uL (0.0-0.1) 03/28/17 06:13 Absolute Nucleated RBC 0.1 /100WBC 03/28/17 06:13 Sodium 143 mmol/L (136-145) 03/28/17 06:13 Corrected Sodium TNP 03/28/17 06:13 Potassium 4.1 mmol/L (3.5-5.1) 03/28/17 06:13 Chloride 108 mmol/L (98-107) H 03/28/17 06:13 Carbon Dioxide 28.1 mmol/L (21-32) 03/28/17 06:13 BUN 8 mg/dL (7-18) 03/28/17 06:13 Creatinine 0.78 mg/dL (0.55-1.02) 03/28/17 06:13 Est GFR (MDRD) Af Amer > 60 (>60) 03/28/17 06:13 Est GFR (MDRD) Non-Af > 60 (>60) 03/28/17 06:13 Glucose 104 mg/dL (65-99) H 03/28/17 06:13 Calcium 8.9 mg/dL (8.5-10.1) 03/28/17 06:13 Corrected Calcium 9.5 mg/dL (8.5-10.1) 03/28/17 06:13 Total Bilirubin 0.60 mg/dL (0.2-1.0) 03/28/17 06:13 AST 18 Units/L (15-37) 03/28/17 06:13 ALT 19 Units/L (12-78) 03/28/17 06:13 Alkaline Phosphatase 81 Units/L (46-116) 03/28/17 06:13 Total Protein 6.8 g/dL (6.4-8.2) 03/28/17 06:13 Albumin 3.3 g/dL (3.4-5.0) L 03/28/17 06:13 Globulin 3.5 g/dL (2.5-4.5) 03/28/17 06:13 Albumin/Globulin Ratio 0.9 Ratio (1.1-2.1) L 03/28/17 06:13 Amylase 55 Units/L (25-115) 03/27/17 20:40 Lipase 146 Units/L (73-393) 03/27/17 20:40 Specimen Type Clean catch urine 03/27/17 20:40 Urine Color Yellow (YELLOW) 03/27/17 20:40 Urine Appearance Hazy (CLEAR) 03/27/17 20:40 Urine pH 5.0 (5.0 - 8.0) 03/27/17 20:40 Ur Specific [place] 1.025 (1.000-1.030) 03/27/17 20:40 Urine Protein 2+ (NEGATIVE) 03/27/17 20:40 Urine Glucose (UA) Negative (NEGATIVE) 03/27/17 20:40 Urine Ketones 1+ (NEGATIVE) 03/27/17 20:40 Urine Occult Blood Negative (NEGATIVE) 03/27/17 20:40 Urine Nitrite Negative (NEGATIVE) 03/27/17 20:40 Urine Bilirubin Negative (NEGATIVE) 03/27/17 20:40 Urine Urobilinogen Normal (NORMAL) 03/27/17 20:40 Ur Leukocyte Esterase 2+ (NEGATIVE) 03/27/17 20:40 Urine RBC 0-2 /HPF (NEGATIVE) 03/27/17 20:40 Urine WBC 0-3 /HPF (NEGATIVE) 03/27/17 20:40 Ur Squamous Epith Cells Rare /HPF (NEGATIVE) 03/27/17 20:40 Urine Bacteria Trace /HPF (NEGATIVE) 03/27/17 20:40 Urine Mucus Moderate /HPF (NEGATIVE) 03/27/17 20:40 Ur Culture Indicated? No/not indicated 03/27/17 20:40 - Plan (1) Diverticulitis Status: Acute Qualifiers: Diverticulitis site: large intestine Diverticulitis bleeding: without bleeding Diverticulitis complication: without perforation or abscess Qualified Code(s): K57.32 - Diverticulitis of large intestine without perforation or abscess without bleeding Plan: NPO, FORTAZ 1GM IV Q8H, FLAGYL 500MG IV Q6H, CONTINUE TO MONITOR (2) Severe headache Status: Acute Plan: DEMEROL 25MG IVP Q4H PRN, CONTINUE TO MONITOR
[2017-03-29] MEDS: NS 1000 ML 1,000 ML IV SCH ×2 (01:27→05:34)
[2017-03-29] MEDS: FLAGYL IV PREMIX 500 MG BAG 500 MG/100 ML BAG IV SCH ×4 (03:43→21:35)
[2017-03-29] MEDS: FORTAZ or TAZICEF INJ 2 GM in NS 50 ML IV + SPIKE MINIBAG* 50 ML IV SCH ×3 (05:31→21:35)
[2017-03-29 05:33] LABS: BASOPHILS % (AUTO) 0.5 % (0.2-1.0); EOSINOPHILS # (AUTO) 0.1 x10^3/uL (0.0-0.2); EOSINOPHILS % (AUTO) 1.5 % (0.9-2.9); HEMATOCRIT 34.7 % (36.0-47.0); HEMOGLOBIN 11.6 g/dL (12.0-16.0); LYMPHOCYTES # (AUTO) 1.6 X10^3/uL (1.3-2.9); LYMPHOCYTES % (AUTO) 27.9 % (21.0-51.0); MEAN CORPUSCULAR HEMOGLOBIN 29.4 pg (27.0-34.0); MEAN CORPUSCULAR HGB CONC 33.3 g/dL (33.0-35.0); MEAN CORPUSCULAR VOLUME 88.1 fL (80.0-100.0); MEAN PLATELET VOLUME 10.5 fL (7.4-11.0); MONOCYTES # (AUTO) 0.4 x10^3/uL (0.3-0.8); MONOCYTES % (AUTO) 6.9 % (0.0-13.0); NEUTROPHILS # (AUTO) 3.5 x10^3/uL (2.2-4.8); NEUTROPHILS % (AUTO) 63.2 % (42.0-75.0); PLATELET COUNT 96 X10^3/uL (150.0-450.0); RED BLOOD COUNT 3.94 X10^6/uL (3.5-5.4); RED CELL DISTRIBUTION WIDTH 15.2 % (11.6-16.5); WHITE BLOOD COUNT 5.6 X10^3/uL (3.6-10.0)
[2017-03-29 05:54] LABS: ALANINE AMINOTRANSFERASE 18 Units/L (12-78); ALKALINE PHOSPHATASE 70 Units/L (46-116); ASPARTATE AMINO TRANSFERASE 18 Units/L (15-37); BLOOD UREA NITROGEN 6 mg/dL (7-18); CALCIUM 8.2 mg/dL (8.5-10.1); CARBON DIOXIDE 24.9 mmol/L (21-32); CHLORIDE 110 mmol/L (98-107); SODIUM 143 mmol/L (136-145); TOTAL PROTEIN 6.4 g/dL (6.4-8.2); eGFR BLACK RACES > 60 (>60); eGFR NON BLACK RACES > 60 (>60)
[2017-03-29] MEDS: FLONASE NASAL SPRAY ENOSTRIL SCH (09:39)
[2017-03-29] MEDS: XANAX PO SCH ×2 (09:40→21:38)
[2017-03-29] MEDS: PLAQUENIL PO SCH ×2 (09:40→21:38)
[2017-03-29] MEDS: COREG TAB 6.25 MG PO SCH ×2 (09:40→21:38)
[2017-03-29] MEDS: COLACE CAP 100 MG PO SCH ×2 (09:40→21:38)
[2017-03-29] MEDS: BETAPACE AF PO SCH ×2 (09:40→21:38)
[2017-03-29] MEDS ORDERED: NS 100 ML IV + SPIKE MINIBAG* 100 ML IV ONE (14:45)
--- NOTE | 2017-03-29 18:11 | CT ---
HISTORY: Abdominal pain, diverticulitis, hepatic mass Study: CT abdomen and pelvis with contrast Comparison: Multiple previous CT exams dating back to May 10, [address] performed March 27, 2017 Technique: Multiple axial images of the abdomen and pelvis were obtained from the lung bases to the pubic symphysis after/ without/ both prior to and after the administration of IV contrast. AEC was u tilized. Findings: The visualized portions of the lung bases are unremarkable. The spleen, pancreas, kidneys, and adren al glands are unremarkable. Within the lateral superior segment left hepatic lobe, there is a 2.4 cm lobulated low-attenuation lesion without enhancement and with Hounsfield units most compatible with a benign cyst. This lesion has been present and stable dating back to 2009 also indicating benignity. There is an additional tiny hypodensity along the falciform ligament also most compatible with a mavis gn cyst. The patient is status post cholecystectomy. No significant mesenteric or retroperitoneal lym phadenopathy can be observed. There is extensive sigmoid diverticulosis with focal left lower quadra nt wall thickening and surrounding mesenteric fat stranding which persists but is slightly improved a s compared to the prior and without pneumoperitoneum to suggest perforation and without focal fluid c ollection to suggest abscess. Again, if not previously performed in the recent past, correlation wit h follow up colonography is recommended after therapy and resolution of acute symptoms to exclude an underlying mass. The urinary bladder is grossly unremarkable. There are no destructive osseous lesi ons. There is lumbar spondylosis. A moderate-sized hiatal hernia is noted. IMPRESSION: 1. Persistent but slightly improved findings of diverticulitis as above. 2. Benign left hepatic lobe cysts. 3. Moderate-sized hiatal hernia. Reported By:
[2017-03-29] MEDS ORDERED: LEXAPRO ONE (21:30)
[2017-03-29] MEDS: PREVACID PO SCH (21:37)
[2017-03-29] MEDS: AMBIEN PO PRN (21:38)
[2017-03-29] MEDS: ASPIRIN 81 MG CHEWTAB PO SCH (21:38)
[2017-03-29] MEDS: NEURONTIN CAP 100 MG PO SCH (21:38)
[2017-03-29] MEDS: LEXAPRO PO SCH (21:38)
[2017-03-29] MEDS: DEMEROL INJ IVP PRN (21:39)
[2017-03-30] MEDS: FLAGYL IV PREMIX 500 MG BAG 500 MG/100 ML BAG IV SCH ×4 (02:46→21:39)
[2017-03-30] MEDS: NS 1000 ML 1,000 ML IV SCH ×3 (02:46→14:53)
[2017-03-30 05:12] LABS: ALANINE AMINOTRANSFERASE 17 Units/L (12-78); ALKALINE PHOSPHATASE 68 Units/L (46-116); ASPARTATE AMINO TRANSFERASE 22 Units/L (15-37); BLOOD UREA NITROGEN 6 mg/dL (7-18); CARBON DIOXIDE 20.2 mmol/L (21-32); CHLORIDE 108 mmol/L (98-107); COR CA(FOR HYPOALB) 8.8 mg/dL (8.5-10.1); CREATININE 0.56 mg/dL (0.55-1.02); SODIUM 140 mmol/L (136-145); TOTAL PROTEIN 6.4 g/dL (6.4-8.2); eGFR BLACK RACES > 60 (>60); eGFR NON BLACK RACES > 60 (>60)
[2017-03-30 05:23] LABS: BASOPHILS # (AUTO) 0.1 X10^3/uL (0.0-0.1); BASOPHILS % (AUTO) 1.7 % (0.2-1.0); EOSINOPHILS # (AUTO) 0.1 x10^3/uL (0.0-0.2); EOSINOPHILS % (AUTO) 1.8 % (0.9-2.9); HEMATOCRIT 34.8 % (36.0-47.0); HEMOGLOBIN 11.7 g/dL (12.0-16.0); LYMPHOCYTES # (AUTO) 1.1 X10^3/uL (1.3-2.9); LYMPHOCYTES % (AUTO) 20.6 % (21.0-51.0); MEAN CORPUSCULAR HEMOGLOBIN 29.7 pg (27.0-34.0); MEAN CORPUSCULAR HGB CONC 33.5 g/dL (33.0-35.0); MEAN CORPUSCULAR VOLUME 88.4 fL (80.0-100.0); MEAN PLATELET VOLUME 10.7 fL (7.4-11.0); MONOCYTES # (AUTO) 0.3 x10^3/uL (0.3-0.8); MONOCYTES % (AUTO) 5.7 % (0.0-13.0); NEUTROPHILS # (AUTO) 3.9 x10^3/uL (2.2-4.8); NEUTROPHILS % (AUTO) 70.2 % (42.0-75.0); PLATELET COUNT 102 X10^3/uL (150.0-450.0); RED BLOOD COUNT 3.93 X10^6/uL (3.5-5.4); WHITE BLOOD COUNT 5.5 X10^3/uL (3.6-10.0)
[2017-03-30] MEDS: FORTAZ or TAZICEF INJ 2 GM in NS 50 ML IV + SPIKE MINIBAG* 50 ML IV SCH ×3 (06:01→21:39)
[2017-03-30] MEDS: ZOFRAN INJ 4 MG VIAL IVP PRN (07:03)
[2017-03-30] MEDS: BETAPACE AF PO SCH ×2 (08:45→21:41)
[2017-03-30] MEDS: COLACE CAP 100 MG PO SCH ×2 (08:45→21:43)
[2017-03-30] MEDS: PLAQUENIL PO SCH ×3 (08:45→21:46)
[2017-03-30] MEDS: COREG TAB 6.25 MG PO SCH ×2 (08:45→21:44)
[2017-03-30] MEDS: FLONASE NASAL SPRAY ENOSTRIL SCH (08:55)
[2017-03-30] MEDS: XANAX PO SCH ×4 (13:19→21:46)
[2017-03-30] MEDS ORDERED: K-LYTE EFFERVESCENT PO PRN (14:14)
[2017-03-30] MEDS ORDERED: K-DUR TAB 20 MEQ PO PRN (14:14)
[2017-03-30] MEDS ORDERED: K-RIDER 10 MEQ/NS 100 ML 10 MEQ/100 ML BAG IV PRN (14:14)
[2017-03-30] MEDS ORDERED: POTASSIUM CHLORIDE LIQ 20 MEQ UDC PO PRN (14:14)
[2017-03-30] MEDS: TYLENOL 325 MG TAB PO PRN (15:24)
[2017-03-30] MEDS ORDERED: LEXAPRO ONE (20:35)
[2017-03-30] MEDS: AMBIEN PO PRN ×2 (21:37→21:39)
[2017-03-30] MEDS: ASPIRIN 81 MG CHEWTAB PO SCH (21:40)
[2017-03-30] MEDS: PREVACID PO SCH (21:41)
[2017-03-30] MEDS: NEURONTIN CAP 100 MG PO SCH (21:41)
[2017-03-30] MEDS: LEXAPRO PO SCH (21:42)
[2017-03-31] MEDS: NS 1000 ML 1,000 ML IV SCH ×3 (05:09→07:21)
[2017-03-31] MEDS: FLAGYL IV PREMIX 500 MG BAG 500 MG/100 ML BAG IV SCH ×2 (05:10→10:25)
[2017-03-31] MEDS: TYLENOL 325 MG TAB PO PRN (05:10)
[2017-03-31] MEDS: ZOFRAN INJ 4 MG VIAL IVP PRN (05:11)
[2017-03-31] MEDS: FORTAZ or TAZICEF INJ 2 GM in NS 50 ML IV + SPIKE MINIBAG* 50 ML IV SCH (05:12)
[2017-03-31 05:40] LABS: BASOPHILS % (AUTO) 0.7 % (0.2-1.0); EOSINOPHILS # (AUTO) 0.1 x10^3/uL (0.0-0.2); EOSINOPHILS % (AUTO) 2.4 % (0.9-2.9); HEMOGLOBIN 11.5 g/dL (12.0-16.0); LYMPHOCYTES # (AUTO) 1.3 X10^3/uL (1.3-2.9); MEAN CORPUSCULAR HEMOGLOBIN 29.4 pg (27.0-34.0); MEAN CORPUSCULAR HGB CONC 33.8 g/dL (33.0-35.0); MEAN CORPUSCULAR VOLUME 86.9 fL (80.0-100.0); MEAN PLATELET VOLUME 10.1 fL (7.4-11.0); MONOCYTES # (AUTO) 0.4 x10^3/uL (0.3-0.8); MONOCYTES % (AUTO) 7.5 % (0.0-13.0); NEUTROPHILS # (AUTO) 2.9 x10^3/uL (2.2-4.8); NEUTROPHILS % (AUTO) 62.4 % (42.0-75.0); PLATELET COUNT 97 X10^3/uL (150.0-450.0); RED BLOOD COUNT 3.91 X10^6/uL (3.5-5.4); RED CELL DISTRIBUTION WIDTH 15.2 % (11.6-16.5); WHITE BLOOD COUNT 4.7 X10^3/uL (3.6-10.0)
[2017-03-31 05:48] LABS: ALANINE AMINOTRANSFERASE 16 Units/L (12-78); ALBUMIN 2.8 g/dL (3.4-5.0); ALKALINE PHOSPHATASE 64 Units/L (46-116); ASPARTATE AMINO TRANSFERASE 24 Units/L (15-37); BLOOD UREA NITROGEN 4 mg/dL (7-18); CARBON DIOXIDE 23.4 mmol/L (21-32); CHLORIDE 111 mmol/L (98-107); CREATININE 0.63 mg/dL (0.55-1.02); SODIUM 143 mmol/L (136-145); eGFR BLACK RACES > 60 (>60); eGFR NON BLACK RACES > 60 (>60)
[2017-03-31] MEDS: PLAQUENIL PO SCH (10:24)
[2017-03-31] MEDS: XANAX PO SCH (10:25)
[2017-03-31] MEDS: COREG TAB 6.25 MG PO SCH (10:25)
[2017-03-31] MEDS: BETAPACE AF PO SCH (10:25)
[2017-03-31] MEDS: FLONASE NASAL SPRAY ENOSTRIL SCH (10:25)
[2017-03-31] MEDS: COLACE CAP 100 MG PO SCH (10:25)
[2017-03-31 13:06] VITALS: BP 144/78
--- NOTE | 2017-03-31 23:41 | PCM.PROG ---
Progress Note - Progress Note for Day of Date: 03/29/17 - Subjective Subjective: MS. DELGADILLO WAS ADMITTED FOR DIVERTICULOSIS AND SEVERE HEADACHE. SHE IS ALERT AND ORIENTED, LYING IN BED ON MORNING ROUNDS. IS AT BEDSIDE. SHE CONTINUES WITH COMPLAINTS OF ABDOMINAL PAIN. TODAY, SHE ALSO HAS COMPLAINTS OF NAUSEA. PATIENT REPORTS THAT HEADACHE HAS RESOLVED. PATIENT REPORTS THAT PAIN IS GREATEST IN THE LLQ. ON EXAMINATION, LUNGS ARE CLEAR TO AUSCULTATION. ABDOMEN IS SOFT, ROUND, AND TENDER. BOWEL SOUNDS ARE NORMAL IN ALL QUADRANTS. VITAL SIGNS THIS MORNING ARE 98.7-79-18-97%-111/65. CBC AND CMP WERE OBTAINED. ABNORMAL LAB VALUES INCLUED THE FOLLOWING: HGB 11.6, HCT 34.7, CHLORIDE 110, BUN 6, CALCIUM 8.2, ALBUMIN 3.0. WE WILL REPEAT A CT ABD/PELVIS WITH CONTRAST TO REEVALUATE THE DIVERTICULITIS. WE WILL CONTINUE WITH CURRENT PLAN OF CARE, AND PLAN TO CHECK A CBC AND CMP IN THE MORNING. WE WILL CONTINUE TO MONITOR PATIENT. - Past Medical Family Social History Past Med/Fam/Surg Hx: No changes since H&P Allergies: Allergies No Known Drug Allergies Allergy (Verified 03/28/17 08:59) - Review of Systems ROS: No change since H&P - Vital Signs and I&O's Vital Signs: Temperature 97.4 F Pulse Rate [Left Brachial] 75 Pulse Rate [Bilateral Radial] 76 Pulse Rate 78 Respiratory Rate 20 Blood Pressure [Left Arm] 144/78 Blood Pressure [Right Arm] 134/66 Blood Pressure 120/78 O2 Sat by Pulse Oximetry 96 Intake and Output: Intake & Output 03/29/17 03/30/17 03/31/17 04/01/17 11:59 11:59 11:59 11:59 Intake Total 9393 994 8532 Balance 4339 360 4178 - Physical Exam Oriented: Normal Eyes: Normal Ear: Normal Nose: Normal Throat: Normal Respiratory: Normal Cardiovascular: Normal : Normal Auscultation: Bowel Sounds: Normal Palpation: Normal Tenderness: Diffuse, LLQ Skin: Normal Musculoskeletal: Normal Psychiatric: Normal Mood Description: Calm Affect: Normal Speech Pattern: Clear, Appropriate - Laboratory and Diagnostics Result Diagrams: 03/31/17 04:10 03/31/17 04:10 Labs: Laboratory WBC 4.7 X10^3/uL (3.6-10.0) 03/31/17 04:10 RBC 3.91 X10^6/uL (3.5-5.4) 03/31/17 04:10 Hgb 11.5 g/dL (12.0-16.0) L 03/31/17 04:10 Hct 34.0 % (36.0-47.0) L 03/31/17 04:10 MCV 86.9 fL (80.0-100.0) 03/31/17 04:10 MCH 29.4 pg (27.0-34.0) 03/31/17 04:10 MCHC 33.8 g/dL (33.0-35.0) 03/31/17 04:10 RDW 15.2 % (11.6-16.5) 03/31/17 04:10 Plt Count 97 X10^3/uL (150.0-450.0) L 03/31/17 04:10 MPV 10.1 fL (7.4-11.0) 03/31/17 04:10 Neut % 62.4 % (42.0-75.0) 03/31/17 04:10 Lymph % 27.0 % (21.0-51.0) 03/31/17 04:10 [place] % 7.5 % (0.0-13.0) 03/31/17 04:10 Eos % 2.4 % (0.9-2.9) 03/31/17 04:10 Baso % 0.7 % (0.2-1.0) 03/31/17 04:10 Neut # 2.9 x10^3/uL (2.2-4.8) 03/31/17 04:10 Lymph # 1.3 X10^3/uL (1.3-2.9) 03/31/17 04:10 [place] # 0.4 x10^3/uL (0.3-0.8) 03/31/17 04:10 Eos # 0.1 x10^3/uL (0.0-0.2) 03/31/17 04:10 Baso # 0.0 X10^3/uL (0.0-0.1) 03/31/17 04:10 Absolute Nucleated RBC 0.1 /100WBC 03/31/17 04:10 Sodium 143 mmol/L (136-145) 03/31/17 04:10 Corrected Sodium TNP 03/31/17 04:10 Potassium 3.4 mmol/L (3.5-5.1) L 03/31/17 04:10 Chloride 111 mmol/L (98-107) H 03/31/17 04:10 Carbon Dioxide 23.4 mmol/L (21-32) 03/31/17 04:10 BUN 4 mg/dL (7-18) L 03/31/17 04:10 Creatinine 0.63 mg/dL (0.55-1.02) 03/31/17 04:10 Est GFR (MDRD) Af Amer > 60 (>60) 03/31/17 04:10 Est GFR (MDRD) Non-Af > 60 (>60) 03/31/17 04:10 Glucose 93 mg/dL (65-99) 03/31/17 04:10 Calcium 8.0 mg/dL (8.5-10.1) L 03/31/17 04:10 Corrected Calcium 9.0 mg/dL (8.5-10.1) 03/31/17 04:10 Total Bilirubin 0.30 mg/dL (0.2-1.0) 03/31/17 04:10 AST 24 Units/L (15-37) 03/31/17 04:10 ALT 16 Units/L (12-78) 03/31/17 04:10 Alkaline Phosphatase 64 Units/L (46-116) 03/31/17 04:10 Total Protein 6.0 g/dL (6.4-8.2) L 03/31/17 04:10 Albumin 2.8 g/dL (3.4-5.0) L 03/31/17 04:10 Globulin 3.2 g/dL (2.5-4.5) 03/31/17 04:10 Albumin/Globulin Ratio 0.9 Ratio (1.1-2.1) L 03/31/17 04:10 Amylase 55 Units/L (25-115) 03/27/17 20:40 Lipase 146 Units/L (73-393) 03/27/17 20:40 Specimen Type Clean catch urine 03/27/17 20:40 Urine Color Yellow (YELLOW) 03/27/17 20:40 Urine Appearance Hazy (CLEAR) 03/27/17 20:40 Urine pH 5.0 (5.0 - 8.0) 03/27/17 20:40 Ur Specific [place] 1.025 (1.000-1.030) 03/27/17 20:40 Urine Protein 2+ (NEGATIVE) 03/27/17 20:40 Urine Glucose (UA) Negative (NEGATIVE) 03/27/17 20:40 Urine Ketones 1+ (NEGATIVE) 03/27/17 20:40 Urine Occult Blood Negative (NEGATIVE) 03/27/17 20:40 Urine Nitrite Negative (NEGATIVE) 03/27/17 20:40 Urine Bilirubin Negative (NEGATIVE) 03/27/17 20:40 Urine Urobilinogen Normal (NORMAL) 03/27/17 20:40 Ur Leukocyte Esterase 2+ (NEGATIVE) 03/27/17 20:40 Urine RBC 0-2 /HPF (NEGATIVE) 03/27/17 20:40 Urine WBC 0-3 /HPF (NEGATIVE) 03/27/17 20:40 Ur Squamous Epith Cells Rare /HPF (NEGATIVE) 03/27/17 20:40 Urine Bacteria Trace /HPF (NEGATIVE) 03/27/17 20:40 Urine Mucus Moderate /HPF (NEGATIVE) 03/27/17 20:40 Ur Culture Indicated? No/not indicated 03/27/17 20:40 - Plan (1) Diverticulitis Status: Acute Qualifiers: Diverticulitis site: large intestine Diverticulitis bleeding: without bleeding Diverticulitis complication: without perforation or abscess Qualified Code(s): K57.32 - Diverticulitis of large intestine without perforation or abscess without bleeding Plan: NPO, FORTAZ 1GM IV Q8H, FLAGYL 500MG IV Q6H, CONTINUE TO MONITOR (2) Severe headache Status: Acute Plan: DEMEROL 25MG IVP Q4H PRN, CONTINUE TO MONITOR
--- NOTE | 2017-03-31 23:42 | PCM.PROG ---
Progress Note - Progress Note for Day of Date: 03/31/17 - Subjective Subjective: WAS ADMITTED FOR DIVERTICULOSIS AND SEVERE HEADACHE. SHE IS ALERT AND ORIENTED, SITTING IN HIGH FOWLERS POSITION ON MORNING ROUNDS. PATIENTS IS AT BEDSIDE. SHE CONTINUES WITH COMPLAINTS OF NAUSEA AND ABDOMINAL PAIN, BUT REPORTS THAT PAIN IS BETTER TODAY THAN IT HAS BEEN SINCE ADMISSION. ON EXAMINATION, LUNGS WERE NOTED CLEAR TO AUSCULTATION. ABDOMEN IS SOFT, ROUND, AND TENDER. BOWEL SOUNDS ARE NORMAL IN ALL QUADRANTS. VITAL SIGNS THIS MORNING ARE 98.2-78-17-97%-102/72. CBC, CMP, AND CT ABD/PELVIS WERE OBTAINED. ABNORMAL LAB RESULTS INCLUDE THE FOLLOWING: HGB 11.7, HCT 34.8, POTASSIUM 3.4, CHLORIDE 108, CARBON DIOXIDE 20.2, BUN 6, CALCIUM 8.0, ALBUMIN 3.0. CT ABD/PELVIS REPORTS PERSISTENT BUT SLIGHTLY IMPROVED FINDINGS OF DIVERTICULITITS, BENIGN LEFT HEPATIC LOBE CYST, AND MODERATE SIZED HIATAL HERNIA. WE WILL CONTINUE PLAN OF CARE AND START ON A CLEAR LIQUID DIET. WE PLAN TO RECHECK CBC AND CMP AND CONTINUE TO MONITOR PATIENT WITH PLANS TO DISCHARGE IN THE MORNING IF PATIENT REMAINS STABLE. - Past Medical Family Social History Past Med/Fam/Surg Hx: No changes since H&P Allergies: Allergies No Known Drug Allergies Allergy (Verified 03/28/17 08:59) - Review of Systems ROS: No change since H&P - Vital Signs and I&O's Vital Signs: Temperature 97.4 F Pulse Rate [Left Brachial] 75 Pulse Rate [Bilateral Radial] 76 Pulse Rate 78 Respiratory Rate 20 Blood Pressure [Left Arm] 144/78 Blood Pressure [Right Arm] 134/66 Blood Pressure 120/78 O2 Sat by Pulse Oximetry 96 Intake and Output: Intake & Output 03/29/17 03/30/17 03/31/17 04/01/17 11:59 11:59 11:59 11:59 Intake Total 6341 111 4572 Balance 3171 897 2233 - Physical Exam Oriented: Normal Eyes: Normal Ear: Normal Nose: Normal Throat: Normal Respiratory: Normal Cardiovascular: Normal : Normal Auscultation: Bowel Sounds: Normal Palpation: Normal Tenderness: Diffuse, LLQ Skin: Normal Musculoskeletal: Normal Psychiatric: Normal Mood Description: Calm Affect: Normal Speech Pattern: Clear, Appropriate - Laboratory and Diagnostics Result Diagrams: 03/31/17 04:10 03/31/17 04:10 Labs: Laboratory WBC 4.7 X10^3/uL (3.6-10.0) 03/31/17 04:10 RBC 3.91 X10^6/uL (3.5-5.4) 03/31/17 04:10 Hgb 11.5 g/dL (12.0-16.0) L 03/31/17 04:10 Hct 34.0 % (36.0-47.0) L 03/31/17 04:10 MCV 86.9 fL (80.0-100.0) 03/31/17 04:10 MCH 29.4 pg (27.0-34.0) 03/31/17 04:10 MCHC 33.8 g/dL (33.0-35.0) 03/31/17 04:10 RDW 15.2 % (11.6-16.5) 03/31/17 04:10 Plt Count 97 X10^3/uL (150.0-450.0) L 03/31/17 04:10 MPV 10.1 fL (7.4-11.0) 03/31/17 04:10 Neut % 62.4 % (42.0-75.0) 03/31/17 04:10 Lymph % 27.0 % (21.0-51.0) 03/31/17 04:10 [place] % 7.5 % (0.0-13.0) 03/31/17 04:10 Eos % 2.4 % (0.9-2.9) 03/31/17 04:10 Baso % 0.7 % (0.2-1.0) 03/31/17 04:10 Neut # 2.9 x10^3/uL (2.2-4.8) 03/31/17 04:10 Lymph # 1.3 X10^3/uL (1.3-2.9) 03/31/17 04:10 [place] # 0.4 x10^3/uL (0.3-0.8) 03/31/17 04:10 Eos # 0.1 x10^3/uL (0.0-0.2) 03/31/17 04:10 Baso # 0.0 X10^3/uL (0.0-0.1) 03/31/17 04:10 Absolute Nucleated RBC 0.1 /100WBC 03/31/17 04:10 Sodium 143 mmol/L (136-145) 03/31/17 04:10 Corrected Sodium TNP 03/31/17 04:10 Potassium 3.4 mmol/L (3.5-5.1) L 03/31/17 04:10 Chloride 111 mmol/L (98-107) H 03/31/17 04:10 Carbon Dioxide 23.4 mmol/L (21-32) 03/31/17 04:10 BUN 4 mg/dL (7-18) L 03/31/17 04:10 Creatinine 0.63 mg/dL (0.55-1.02) 03/31/17 04:10 Est GFR (MDRD) Af Amer > 60 (>60) 03/31/17 04:10 Est GFR (MDRD) Non-Af > 60 (>60) 03/31/17 04:10 Glucose 93 mg/dL (65-99) 03/31/17 04:10 Calcium 8.0 mg/dL (8.5-10.1) L 03/31/17 04:10 Corrected Calcium 9.0 mg/dL (8.5-10.1) 03/31/17 04:10 Total Bilirubin 0.30 mg/dL (0.2-1.0) 03/31/17 04:10 AST 24 Units/L (15-37) 03/31/17 04:10 ALT 16 Units/L (12-78) 03/31/17 04:10 Alkaline Phosphatase 64 Units/L (46-116) 03/31/17 04:10 Total Protein 6.0 g/dL (6.4-8.2) L 03/31/17 04:10 Albumin 2.8 g/dL (3.4-5.0) L 03/31/17 04:10 Globulin 3.2 g/dL (2.5-4.5) 03/31/17 04:10 Albumin/Globulin Ratio 0.9 Ratio (1.1-2.1) L 03/31/17 04:10 Amylase 55 Units/L (25-115) 03/27/17 20:40 Lipase 146 Units/L (73-393) 03/27/17 20:40 Specimen Type Clean catch urine 03/27/17 20:40 Urine Color Yellow (YELLOW) 03/27/17 20:40 Urine Appearance Hazy (CLEAR) 03/27/17 20:40 Urine pH 5.0 (5.0 - 8.0) 03/27/17 20:40 Ur Specific [place] 1.025 (1.000-1.030) 03/27/17 20:40 Urine Protein 2+ (NEGATIVE) 03/27/17 20:40 Urine Glucose (UA) Negative (NEGATIVE) 03/27/17 20:40 Urine Ketones 1+ (NEGATIVE) 03/27/17 20:40 Urine Occult Blood Negative (NEGATIVE) 03/27/17 20:40 Urine Nitrite Negative (NEGATIVE) 03/27/17 20:40 Urine Bilirubin Negative (NEGATIVE) 03/27/17 20:40 Urine Urobilinogen Normal (NORMAL) 03/27/17 20:40 Ur Leukocyte Esterase 2+ (NEGATIVE) 03/27/17 20:40 Urine RBC 0-2 /HPF (NEGATIVE) 03/27/17 20:40 Urine WBC 0-3 /HPF (NEGATIVE) 03/27/17 20:40 Ur Squamous Epith Cells Rare /HPF (NEGATIVE) 03/27/17 20:40 Urine Bacteria Trace /HPF (NEGATIVE) 03/27/17 20:40 Urine Mucus Moderate /HPF (NEGATIVE) 03/27/17 20:40 Ur Culture Indicated? No/not indicated 03/27/17 20:40 - Plan (1) Diverticulitis Status: Acute Qualifiers: Diverticulitis site: large intestine Diverticulitis bleeding: without bleeding Diverticulitis complication: without perforation or abscess Qualified Code(s): K57.32 - Diverticulitis of large intestine without perforation or abscess without bleeding Plan: NPO, FORTAZ 1GM IV Q8H, FLAGYL 500MG IV Q6H, CONTINUE TO MONITOR (2) Severe headache Status: Acute Plan: DEMEROL 25MG IVP Q4H PRN, CONTINUE TO MONITOR
== END 2017-03-31 12:40 | disposition home or self-care (01) | DRG 392 ==
LOC: ER 20:01 → OBS 23:08 → OBSVTOIN 23:08 → MED/SURG 03-28 14:22
PROVIDERS: ADMIT Internal Medicine; ATTEND Internal Medicine
DX: K57.32 Diverticulitis of large intestine without perforation or abscess without bleeding (principal); R51 Headache; R10.84 Generalized abdominal pain; K21.9 Gastro-esophageal reflux disease without esophagitis; I10 Essential (primary) hypertension; R11.2 Nausea with vomiting, unspecified; K44.9 Diaphragmatic hernia without obstruction or gangrene; M25.551 Pain in right hip
CPT/HCPCS: 36415; 74176; 74177; 80053; 81001; 82150; 83690; 85025; 94760; 96365; 96374; 96375; 99284; A4222; S0030; J0713; J0744; J2175; J2405

== ENCOUNTER → 2017-07-25 | Outpatient (CLI) | payer OTHER ==
--- NOTE | 2017-07-25 18:46 | RAD ---
Examination: Left knee, three views History: Bilateral knee pain Findings: No definite fracture, bone destruction or significant arthropathy. Articular surfaces are s mooth and well defined. No synovial effusion. Impression: No acute or significant findings. Reported By:
--- NOTE | 2017-07-25 18:46 | RAD ---
Examination: Right knee, three views History: Acute knee pain Findings: No definite fracture, bone destruction or significant articular deformity. The periarticula r soft tissues are normal. The patella is in normal position. Impression: No acute or significant findings. Reported By:
== END ==
LOC: RAD 16:02
PROVIDERS: ATTEND Nurse Practitioner Family
DX: M25.561 Pain in right knee (principal); M25.562 Pain in left knee
CPT/HCPCS: 73564

== ENCOUNTER → 2017-08-22 | Outpatient (CLI) | payer OTHER ==
[2017-08-22 11:25] LABS: ALANINE AMINOTRANSFERASE 25 Units/L (12-78); ALBUMIN 3.7 g/dL (3.4-5.0); ALKALINE PHOSPHATASE 81 Units/L (46-116); ASPARTATE AMINO TRANSFERASE 24 Units/L (15-37); BLOOD UREA NITROGEN 11 mg/dL (7-18); CARBON DIOXIDE 26.9 mmol/L (21-32); CHLORIDE 106 mmol/L (98-107); CHOL/HDL RATIO 3.2 (0.0-5.0); CHOLESTEROL 188 mg/dL (0-200); CREATININE 0.92 mg/dL (0.55-1.02); HDL CHOLESTEROL 59 mg/dL (40-60); SODIUM 141 mmol/L (136-145); TOTAL PROTEIN 7.3 g/dL (6.4-8.2); TRIGLYCERIDES 60 mg/dL (0-150); eGFR BLACK RACES > 60 (>60); eGFR NON BLACK RACES > 60 (>60)
[2017-08-22 11:28] LABS: BASOPHILS % (AUTO) 0.6 % (0.2-1.0); EOSINOPHILS # (AUTO) 0.1 x10^3/uL (0.0-0.2); EOSINOPHILS % (AUTO) 1.5 % (0.9-2.9); HEMOGLOBIN 13.5 g/dL (12.0-16.0); LYMPHOCYTES # (AUTO) 1.9 X10^3/uL (1.3-2.9); LYMPHOCYTES % (AUTO) 30.7 % (21.0-51.0); MEAN CORPUSCULAR HEMOGLOBIN 29.7 pg (27.0-34.0); MEAN CORPUSCULAR HGB CONC 33.7 g/dL (33.0-35.0); MEAN CORPUSCULAR VOLUME 87.9 fL (80.0-100.0); MEAN PLATELET VOLUME 10.4 fL (7.4-11.0); MONOCYTES # (AUTO) 0.4 x10^3/uL (0.3-0.8); MONOCYTES % (AUTO) 6.5 % (0.0-13.0); NEUTROPHILS # (AUTO) 3.7 x10^3/uL (2.2-4.8); NEUTROPHILS % (AUTO) 60.7 % (42.0-75.0); PLATELET COUNT 138 X10^3/uL (150.0-450.0); RED BLOOD COUNT 4.55 X10^6/uL (3.5-5.4); RED CELL DISTRIBUTION WIDTH 14.8 % (11.6-16.5); WHITE BLOOD COUNT 6.1 X10^3/uL (3.6-10.0)
[2017-08-22 12:37] LABS: ERYTHROCYTE SEDIMENTATION RATE 16 MM/HOUR (0-20)
== END ==
LOC: LAB 10:55
PROVIDERS: ATTEND Nurse Practitioner Family
DX: L93.0 Discoid lupus erythematosus (principal); E78.4 Other hyperlipidemia
CPT/HCPCS: 36415; 80053; 80061; 85025; 85652; 86140

== ENCOUNTER 2017-09-28 13:09 | Emergency (ER) | payer OTHER ==
[2017-09-28 13:15] VITALS: BP 114/69; BMI 34.7
--- NOTE | 2017-09-28 13:34 | DR.GENAD ---
HPI - PCP Primary Care Physician: ALEM - Complaint/Symptoms Chief Complaint:: MY DIVERTICULITIS IS ACTING UP. I CALLED [facility] [employer] CALLED IN SOME FLAGYL BUT IT HAS NOT HELPED ME. - Nurses notes reviewed Nurses Notes Review: Yes - Source History Provided: Patient - Mode of Arrival Mode of Arrival: Ambulatory - Timing Onset of Chief Complaint: 09/24/17 PMH - PMH Past Medical History: Yes Past Medical History: Anxiety, GERD, Hypertension, Ventricular Tachycardia Past Medical History Comment: LUPUS Past Surgical History: Yes Surgical History: Cholecystectomy, [employer] Surgery, Tonsillectomy - Family History History of Family Medical Conditions: Yes Family Medical History: Diabetes Mellitus, Cancer, [place], Hypertension - Social History Does any household member use tobacco: No Alcohol Use: None Do you use any recreational Drugs:: No Lives With: Spouse Lives Where: Home - infectious screening In the last 2 months have you had wt loss of >10#?: NO Have you had fever, night sweats or hemotysis?: No Have you traveled outside the country in the last 6 months?: No Isolation: Standard PE - Vital Signs Vitals: Temperature 98 F Pulse Rate 81 Respiratory Rate 20 Blood Pressure [Left Arm] 144/78 Blood Pressure [Right Arm] 134/66 Blood Pressure 114/69 O2 Sat by Pulse Oximetry 97 ROR - Labs Reviewed Result Diagrams: 09/28/17 14:20 09/28/17 14:20 Laboratory: WBC 5.3 X10^3/uL (3.6-10.0) 09/28/17 14:20 RBC 4.11 X10^6/uL (3.5-5.4) 09/28/17 14:20 Hgb 12.2 g/dL (12.0-16.0) 09/28/17 14:20 Hct 36.1 % (36.0-47.0) 09/28/17 14:20 MCV 87.8 fL (80.0-100.0) 09/28/17 14:20 MCH 29.6 pg (27.0-34.0) 09/28/17 14:20 MCHC 33.7 g/dL (33.0-35.0) 09/28/17 14:20 RDW 15.1 % (11.6-16.5) 09/28/17 14:20 Plt Count 115 X10^3/uL (150.0-450.0) L 09/28/17 14:20 MPV 10.2 fL (7.4-11.0) 09/28/17 14:20 Neut % (Auto) 63.6 % (42.0-75.0) 09/28/17 14:20 Lymph % (Auto) 26.7 % (21.0-51.0) 09/28/17 14:20 [place] % (Auto) 7.9 % (0.0-13.0) 09/28/17 14:20 Eos % (Auto) 1.0 % (0.9-2.9) 09/28/17 14:20 Baso % (Auto) 0.8 % (0.2-1.0) 09/28/17 14:20 Neut # (Auto) 3.4 x10^3/uL (2.2-4.8) 09/28/17 14:20 Lymph # (Auto) 1.4 X10^3/uL (1.3-2.9) 09/28/17 14:20 [place] # (Auto) 0.4 x10^3/uL (0.3-0.8) 09/28/17 14:20 Eos # (Auto) 0.1 x10^3/uL (0.0-0.2) 09/28/17 14:20 Baso # (Auto) 0.0 X10^3/uL (0.0-0.1) 09/28/17 14:20 Absolute Nucleated RBC 0.0 /100WBC 09/28/17 14:20 Sodium 141 mmol/L (136-145) 09/28/17 14:20 Corrected Sodium TNP 09/28/17 14:20 Potassium 3.9 mmol/L (3.5-5.1) 09/28/17 14:20 Chloride 106 mmol/L (98-107) 09/28/17 14:20 Carbon Dioxide 25.6 mmol/L (21-32) 09/28/17 14:20 BUN 10 mg/dL (7-18) 09/28/17 14:20 Creatinine 0.76 mg/dL (0.55-1.02) 09/28/17 14:20 Est GFR (MDRD) Af Amer > 60 (>60) 09/28/17 14:20 Est GFR (MDRD) Non-Af > 60 (>60) 09/28/17 14:20 Glucose 97 mg/dL (65-99) 09/28/17 14:20 Calcium 8.2 mg/dL (8.5-10.1) L 09/28/17 14:20 Corrected Calcium TNP 09/28/17 14:20 Total Bilirubin 0.30 mg/dL (0.2-1.0) 09/28/17 14:20 AST 24 Units/L (15-37) 09/28/17 14:20 ALT 32 Units/L (12-78) 09/28/17 14:20 Alkaline Phosphatase 80 Units/L (46-116) 09/28/17 14:20 Total Protein 7.3 g/dL (6.4-8.2) 09/28/17 14:20 Albumin 3.4 g/dL (3.4-5.0) 09/28/17 14:20 Globulin 3.9 g/dL (2.5-4.5) 09/28/17 14:20 Albumin/Globulin Ratio 0.9 Ratio (1.1-2.1) L 09/28/17 14:20 Amylase 37 Units/L (25-115) 09/28/17 14:20 Lipase 133 Units/L (73-393) 09/28/17 14:20 Specimen Type Clean catch urine 09/28/17 15:05 Urine Color Dark yellow (YELLOW) 09/28/17 15:05 Urine Appearance Clear (CLEAR) 09/28/17 15:05 Urine pH 6.5 (5.0 - 8.0) 09/28/17 15:05 Ur Specific [place] 1.015 (1.000-1.030) 09/28/17 15:05 Urine Protein 1+ (NEGATIVE) 09/28/17 15:05 Urine Glucose (UA) Negative (NEGATIVE) 09/28/17 15:05 Urine Ketones Negative (NEGATIVE) 09/28/17 15:05 Urine Occult Blood Negative (NEGATIVE) 09/28/17 15:05 Urine Nitrite Negative (NEGATIVE) 09/28/17 15:05 Urine Bilirubin Negative (NEGATIVE) 09/28/17 15:05 Urine Urobilinogen Normal (NORMAL) 09/28/17 15:05 Ur Leukocyte Esterase 2+ (NEGATIVE) 09/28/17 15:05 Urine RBC 0-2 /HPF (NONE SEEN) 09/28/17 15:05 Urine WBC 0-4 /HPF (NONE SEEN) 09/28/17 15:05 Ur Squamous Epith Cells Moderate /HPF (NEGATIVE) 09/28/17 15:05 Urine Bacteria Trace /HPF (NEGATIVE) 09/28/17 15:05 Urine Mucus Moderate /HPF (NEGATIVE) 09/28/17 15:05 Ur Culture Indicated? No/not indicated 09/28/17 15:05 - Diagnosis Discharge Problem: Diverticulitis Abdominal pain Qualifiers: Abdominal location: left lower quadrant Qualified Code(s): R10.32 - Left lower quadrant pain - Discharge Plan Disposition: 01 HOME, SELF-CARE Condition: Stable Prescriptions: Amoxicillin & Pot Clavulanate [AUGMENTIN TAB 875 mg/125 mg *] 1 tab PO BID #20 tab - Follow ups/Referrals Follow ups/Referrals: PETAR PRESLEY [Primary Care Provider] - 09/29/17 - Instructions Instructions: Diverticulitis, [id number], Abdominal Pain, Adult, [id number] Additional Instructions: RETURN TO ED IF WORSE. FOLLOW UP WITH GI DOCTOR.
[2017-09-28 14:29] LABS: BASOPHILS % (AUTO) 0.8 % (0.2-1.0); EOSINOPHILS # (AUTO) 0.1 x10^3/uL (0.0-0.2); HEMATOCRIT 36.1 % (36.0-47.0); HEMOGLOBIN 12.2 g/dL (12.0-16.0); LYMPHOCYTES # (AUTO) 1.4 X10^3/uL (1.3-2.9); LYMPHOCYTES % (AUTO) 26.7 % (21.0-51.0); MEAN CORPUSCULAR HEMOGLOBIN 29.6 pg (27.0-34.0); MEAN CORPUSCULAR HGB CONC 33.7 g/dL (33.0-35.0); MEAN CORPUSCULAR VOLUME 87.8 fL (80.0-100.0); MEAN PLATELET VOLUME 10.2 fL (7.4-11.0); MONOCYTES # (AUTO) 0.4 x10^3/uL (0.3-0.8); MONOCYTES % (AUTO) 7.9 % (0.0-13.0); NEUTROPHILS # (AUTO) 3.4 x10^3/uL (2.2-4.8); NEUTROPHILS % (AUTO) 63.6 % (42.0-75.0); PLATELET COUNT 115 X10^3/uL (150.0-450.0); RED BLOOD COUNT 4.11 X10^6/uL (3.5-5.4); RED CELL DISTRIBUTION WIDTH 15.1 % (11.6-16.5); WHITE BLOOD COUNT 5.3 X10^3/uL (3.6-10.0)
[2017-09-28 14:39] LABS: ALANINE AMINOTRANSFERASE 32 Units/L (12-78); ALBUMIN 3.4 g/dL (3.4-5.0); ALKALINE PHOSPHATASE 80 Units/L (46-116); AMYLASE 37 Units/L (25-115); ASPARTATE AMINO TRANSFERASE 24 Units/L (15-37); BLOOD UREA NITROGEN 10 mg/dL (7-18); CALCIUM 8.2 mg/dL (8.5-10.1); CARBON DIOXIDE 25.6 mmol/L (21-32); CHLORIDE 106 mmol/L (98-107); CREATININE 0.76 mg/dL (0.55-1.02); LIPASE 133 Units/L (73-393); SODIUM 141 mmol/L (136-145); TOTAL PROTEIN 7.3 g/dL (6.4-8.2); eGFR BLACK RACES > 60 (>60); eGFR NON BLACK RACES > 60 (>60)
--- NOTE | 2017-09-28 14:45 | CT ---
HISTORY: Abdominal pain Study: CT abdomen pelvis with contrast Comparison: 03/29/2017 Technique: Axial noncontrast images with coronal and sagittal reformats. Dose reduction procedures we re used with mA/kv adjusted for body size. The examination is significantly limited due to the lack o f intravenous and oral contrast. Findings: The lung bases are clear. There is a large hiatal hernia present. The liver, spleen, adrenal glands, and pancreas are within normal limits. Benign hepatic cysts are present. The patient is status post c holecystectomy. The kidneys are unobstructed and without stones or masses. No ureteral calculi are id entified. Calcific atherosclerotic changes present in a nondilated abdominal aorta. No intraperitonea l or retroperitoneal lymphadenopathy is identified. There are no findings suggestive of colitis. The appendix is normal. Mild pericolonic inflammatory changes are present in the area of the descending c olon, sigmoid colon junction. This likely represents either recurrent or persistent diverticulitis. I t is unchanged in appearance from the prior examination. No perforation or abscess is identified. No pelvic masses, pelvic fluid, or pelvic lymphadenopathy is identified. No bladder abnormality is ident ified. No lytic or blastic skeletal lesions are identified. IMPRESSION: Findings consistent with mild diverticulitis at the descending colon/sigmoid colon junction which cou ld be persistent or recurrent. No definite abscess or perforation identified Large hiatal hernia Benign hepatic cysts Reported By:
[2017-09-28 15:14] LABS: BILIRUBIN,URINE NEGATIVE (NEGATIVE); BLOOD/HEMOGLOBIN,URINE NEGATIVE (NEGATIVE); GLUCOSE, URINE NEGATIVE (NEGATIVE); KETONES,URINE NEGATIVE (NEGATIVE); LEUKOCYTE ESTERASE ,URINE 2+ (NEGATIVE); NITRITES,URINE NEGATIVE (NEGATIVE); PH,URINE 6.5 (5.0 - 8.0); PROTEIN,URINE 1+ (NEGATIVE); UROBILINOGEN,URINE NORMAL (NORMAL)
[2017-09-28 15:17] LABS: APPEARANCE,URINE CLEAR (CLEAR); COLOR,URINE DARK YELLOW (YELLOW)
[2017-09-28 15:20] LABS: BACTERIA,URINE TRACE /HPF (NEGATIVE); RBC,URINE 0-2 /HPF (NONE SEEN); SQUAMOUS EPITHELIAL CELL,UR MODERATE /HPF (NEGATIVE)
[2017-09-28 15:21] LABS: MUCUS,URINE MODERATE /HPF (NEGATIVE)
== END 2017-09-28 16:54 | disposition home or self-care (01) ==
LOC: ER 13:18
DX: K57.92 Diverticulitis of intestine, part unspecified, without perforation or abscess without bleeding (principal); R10.32 Left lower quadrant pain
CPT/HCPCS: 36415; 74176; 80053; 81001; 82150; 83690; 85025; 99281; 99282

== ENCOUNTER → 2017-11-18 | Outpatient (CLI) | payer OTHER ==
[2017-11-18 17:03] LABS: CRYPTOSPORIDIUM PARVUM ANTIGEN NEGATIVE (NEGATIVE); GIARDIA LAMBLIA ANTIGEN NEGATIVE (NEGATIVE)
== END ==
LOC: LAB 15:48
PROVIDERS: ATTEND Nurse Practitioner Family
DX: R19.7 Diarrhea, unspecified (principal)
CPT/HCPCS: 82274; 87045; 87328; 87329; 87336; 87338; 87427; 87449; 87493

== ENCOUNTER 2017-11-26 19:58 | Emergency (ER) | payer OTHER ==
[2017-11-26 20:12] VITALS: BP 111/67; BMI 34.2
--- NOTE | 2017-11-26 20:56 | DR.GENAD ---
HPI - PCP Primary Care Physician: CAROLYNN PRESLEY - Complaint/Symptoms Chief Complaint Doctors Comments: LLQ ABDOMINAL PAIN WITH NAUSEA AND SLIGHT DIARRHEA TIMES FEW DAYS. PATIENT ON CIPRO AND FLAGYL WHEN SYMTONS STARTED. PAIN INCREASING. NO FEVER. NO DYSURIA. PENDING SURGERY NEXT MONTH FOR PARTIAL COLECTOMY. Chief Complaint:: BELLY SWOLLEN AND LEFT SIDE PAIN, SUPPOSE TO HAVE SX 12/03 TO HAVE SOME COLON REMOVED DUE TO DIVERTICULITIS. Self Treatment fo Chief Complaint: FLAGYL. AMOXCILLIN - Nurses notes reviewed Nurses Notes Review: Yes - Source History Provided: Patient - Mode of Arrival Mode of Arrival: Ambulatory - Timing Onset of Chief Complaint: 11/26/17 Came on: Gradually - Duration Duration: Constant Duration: Days - Severity Severity: Moderate PMH - PMH Past Medical History: Yes Past Medical History: Anxiety, Ventricular Tachycardia Past Medical History Comment: FIBROMYALGIA Past Surgical History: Yes Surgical History: Cholecystectomy, [employer] Surgery Past Surgical History Comment: PACER/DEFIB. TUBAL LIGATION. SINUS SX - Family History History of Family Medical Conditions: Yes Family Medical History: Diabetes Mellitus, Cancer, [place], Hypertension Family Medical History Comment: MOTHER MASS TO THYROID - Social History Does patient currently use any type of tobacco product: No Have you used tobacco products in the last 12 months: No Type of Tobacco Use: None Does any household member use tobacco: No Alcohol Use: None Do you use any recreational Drugs:: No Lives With: Spouse Lives Where: Home - infectious screening In the last 2 months have you had wt loss of >10#?: NO Have you had fever, night sweats or hemotysis?: No Have you traveled outside the country in the last 6 months?: No Isolation: Standard ROS - Review of Systems Constitutional: No Symptoms Reported. negative: Chills, Fever, Weakness, Fatigue Eyes: No Symptoms Reported ENTM: No Symptoms Reported Respiratoy: No Symptoms Reported Cardiovascular: No Symptoms Reported Gastrointestinal/Abdominal: Abdominal Pain, Diarrhea, Nausea. negative: Vomiting Genitourinary: negative: Dysuria, Frequency, Hematuria Neurological: No Symptoms Reported Musculoskeletal: No Symptoms Reported Integumentary: No Symptoms Reported Hematologic/Lymphatic: No Symptoms Reported Endocrine: No Symptoms Reported All Other Systems: Reviewed and Negative PE - Vital Signs Vitals: Temperature 98.0 F Pulse Rate 78 Respiratory Rate 18 Blood Pressure [Left Arm] 144/78 Blood Pressure [Right Arm] 134/66 Blood Pressure 111/67 O2 Sat by Pulse Oximetry 99 - General Limitations: No Limitations General Appearance: Alert - Head Head Exam: Normal Inspection - Eyes Eye exam: Normal Appearance - ENT ENT Exam: Normal External Ear Exam External Ear Exam: Normal External Inspection TM/Canal Exam: Bilateral Normal Nose Exam: Normal Nose Exam Mouth Exam: Normal Inspection Throat Exam: Normal Inspection - Neck Neck Exam: Trachea Midline - Chest Chest Inspection: Symmetric Chest Wall Rise - Respiratory Respiratory Exam: Normal Lung Sounds Bilat Respiratory Exam: Bilateral Clear to Auscultation - Cardiovascular Cardiovascular Exam: Regular Rate, Normal Rhythm, Normal Heart Sounds - Abdominal Exam Abdominal Exam: Normal Bowel Sounds, Soft, Tenderness Abdominal Tenderness: LLQ, Moderate - Extremities Extremities Exam: Normal Inspection - Back Back Exam: Normal Inspection - Neurologic Neurological Exam: Alert, Oriented X3 - Psychiatric Psychiatric Exam: Normal Affect, Normal Mood - Skin Skin Exam: Normal Color [facility] - Additional Information Additional Information Obtained From: Family - Differential Diagnosis Differential Diagnosis: LLQ ABDOMINAL PAIN, DIVERTICULITIS, BOWEL OBSTRUCTION Course - Treatment Treatment: PATIENT ON CIPRO AND FLAGYL CURRENTLY. - Education/Counseling Education/Counseling: Patient, Education Educated On: Diagnosis, Needs for Follow Up ROR - Labs Reviewed Laboratory Results Reviewed?: Yes Result Diagrams: 11/26/17 21:12 11/26/17 21:12 Laboratory: WBC 7.1 X10^3/uL (3.6-10.0) 11/26/17 21:12 RBC 4.10 X10^6/uL (3.5-5.4) 11/26/17 21:12 Hgb 12.3 g/dL (12.0-16.0) 11/26/17 21:12 Hct 36.3 % (36.0-47.0) 11/26/17 21:12 MCV 88.5 fL (80.0-100.0) 11/26/17 21:12 MCH 30.1 pg (27.0-34.0) 11/26/17 21:12 MCHC 34.0 g/dL (33.0-35.0) 11/26/17 21:12 RDW 14.8 % (11.6-16.5) 11/26/17 21:12 Plt Count 131 X10^3/uL (150.0-450.0) L 11/26/17 21:12 MPV 10.1 fL (7.4-11.0) 11/26/17 21:12 Neut % (Auto) 67.4 % (42.0-75.0) 11/26/17 21:12 Lymph % (Auto) 23.3 % (21.0-51.0) 11/26/17 21:12 Cherry % (Auto) 7.3 % (0.0-13.0) 11/26/17 21:12 Eos % (Auto) 1.6 % (0.9-2.9) 11/26/17 21:12 Baso % (Auto) 0.4 % (0.2-1.0) 11/26/17 21:12 Neut # (Auto) 4.8 x10^3/uL (2.2-4.8) 11/26/17 21:12 Lymph # (Auto) 1.7 X10^3/uL (1.3-2.9) 11/26/17 21:12 Cherry # (Auto) 0.5 x10^3/uL (0.3-0.8) 11/26/17 21:12 Eos # (Auto) 0.1 x10^3/uL (0.0-0.2) 11/26/17 21:12 Baso # (Auto) 0.0 X10^3/uL (0.0-0.1) 11/26/17 21:12 Absolute Nucleated RBC 0.0 /100WBC 11/26/17 21:12 Sodium 139 mmol/L (136-145) 11/26/17 21:12 Corrected Sodium TNP 11/26/17 21:12 Potassium 3.5 mmol/L (3.5-5.1) 11/26/17 21:12 Chloride 105 mmol/L (98-107) 11/26/17 21:12 Carbon Dioxide 26.9 mmol/L (21-32) 11/26/17 21:12 BUN 7 mg/dL (7-18) 11/26/17 21:12 Creatinine 0.94 mg/dL (0.55-1.02) 11/26/17 21:12 Est GFR (MDRD) Af Amer > 60 (>60) 11/26/17 21:12 Est GFR (MDRD) Non-Af > 60 (>60) 05/16/18 21:12 Glucose 94 mg/dL (65-99) 11/26/17 21:12 Calcium 7.8 mg/dL (8.5-10.1) L 11/26/17 21:12 Corrected Calcium TNP 11/26/17 21:12 Total Bilirubin 0.20 mg/dL (0.2-1.0) 11/26/17 21:12 AST 28 Units/L (15-37) 11/26/17 21:12 ALT 32 Units/L (12-78) 11/26/17 21:12 Alkaline Phosphatase 105 Units/L (46-116) 11/26/17 21:12 Total Protein 7.3 g/dL (6.4-8.2) 11/26/17 21:12 Albumin 3.6 g/dL (3.4-5.0) 11/26/17 21:12 Globulin 3.7 g/dL (2.5-4.5) 11/26/17 21:12 Albumin/Globulin Ratio 1.0 Ratio (1.1-2.1) L 11/26/17 21:12 Amylase 53 Units/L (25-115) 11/26/17 21:12 Lipase 213 Units/L (73-393) 11/26/17 21:12 Specimen Type Clean catch urine 11/26/17 20:58 Urine Color Yellow (YELLOW) 11/26/17 20:58 Urine Appearance Clear (CLEAR) 11/26/17 20:58 Urine pH 7.0 (5.0 - 8.0) 11/26/17 20:58 Ur Specific Holden 1.010 (1.000-1.030) 11/26/17 20:58 Urine Protein Negative (NEGATIVE) 11/26/17 20:58 Urine Glucose (UA) Negative (NEGATIVE) 11/26/17 20:58 Urine Ketones Negative (NEGATIVE) 11/26/17 20:58 Urine Occult Blood Negative (NEGATIVE) 11/26/17 20:58 Urine Nitrite Negative (NEGATIVE) 11/26/17 20:58 Urine Bilirubin Negative (NEGATIVE) 11/26/17 20:58 Urine Urobilinogen Normal (NORMAL) 11/26/17 20:58 Ur Leukocyte Esterase 2+ (NEGATIVE) 11/26/17 20:58 Urine RBC 0-2 /HPF (NONE SEEN) 11/26/17 20:58 Urine WBC 0-2 /HPF (NONE SEEN) 11/26/17 20:58 Ur Squamous Epith Cells Moderate /HPF (NEGATIVE) 11/26/17 20:58 Urine Bacteria Trace /HPF (NEGATIVE) 11/26/17 20:58 Urine Mucus Few /HPF (NEGATIVE) 11/26/17 20:58 Ur Culture Indicated? No/not indicated 11/26/17 20:58 - XRAY XRAY Interpreted by: Radiologist XRAY Findings: REPORT DISCUSS WITH PATIENT. - Diagnosis Discharge Problem: Diverticulitis - Discharge Plan Disposition: 01 HOME, SELF-CARE Condition: Stable - Follow ups/Referrals Follow ups/Referrals: PETAR PRESLEY [Primary Care Provider] - 11/27/17 - Instructions Instructions: Diverticulitis, [id number] Additional Instructions: RETURN TO ED IF WORSE. CONTINUE ANTIBIOTICS
[2017-11-26 21:29] LABS: BASOPHILS % (AUTO) 0.4 % (0.2-1.0); EOSINOPHILS # (AUTO) 0.1 x10^3/uL (0.0-0.2); EOSINOPHILS % (AUTO) 1.6 % (0.9-2.9); HEMATOCRIT 36.3 % (36.0-47.0); HEMOGLOBIN 12.3 g/dL (12.0-16.0); LYMPHOCYTES # (AUTO) 1.7 X10^3/uL (1.3-2.9); LYMPHOCYTES % (AUTO) 23.3 % (21.0-51.0); MEAN CORPUSCULAR HEMOGLOBIN 30.1 pg (27.0-34.0); MEAN CORPUSCULAR VOLUME 88.5 fL (80.0-100.0); MEAN PLATELET VOLUME 10.1 fL (7.4-11.0); MONOCYTES # (AUTO) 0.5 x10^3/uL (0.3-0.8); MONOCYTES % (AUTO) 7.3 % (0.0-13.0); NEUTROPHILS # (AUTO) 4.8 x10^3/uL (2.2-4.8); NEUTROPHILS % (AUTO) 67.4 % (42.0-75.0); PLATELET COUNT 131 X10^3/uL (150.0-450.0); RED CELL DISTRIBUTION WIDTH 14.8 % (11.6-16.5); WHITE BLOOD COUNT 7.1 X10^3/uL (3.6-10.0)
[2017-11-26 21:39] LABS: ALANINE AMINOTRANSFERASE 32 Units/L (12-78); ALBUMIN 3.6 g/dL (3.4-5.0); ALKALINE PHOSPHATASE 105 Units/L (46-116); AMYLASE 53 Units/L (25-115); ASPARTATE AMINO TRANSFERASE 28 Units/L (15-37); BLOOD UREA NITROGEN 7 mg/dL (7-18); CALCIUM 7.8 mg/dL (8.5-10.1); CARBON DIOXIDE 26.9 mmol/L (21-32); CHLORIDE 105 mmol/L (98-107); CREATININE 0.94 mg/dL (0.55-1.02); LIPASE 213 Units/L (73-393); SODIUM 139 mmol/L (136-145); TOTAL PROTEIN 7.3 g/dL (6.4-8.2); eGFR BLACK RACES > 60 (>60); eGFR NON BLACK RACES > 60 (>60)
[2017-11-26 21:45] LABS: BILIRUBIN,URINE NEGATIVE (NEGATIVE); BLOOD/HEMOGLOBIN,URINE NEGATIVE (NEGATIVE); GLUCOSE, URINE NEGATIVE (NEGATIVE); KETONES,URINE NEGATIVE (NEGATIVE); LEUKOCYTE ESTERASE ,URINE 2+ (NEGATIVE); NITRITES,URINE NEGATIVE (NEGATIVE); PROTEIN,URINE NEGATIVE (NEGATIVE); UROBILINOGEN,URINE NORMAL (NORMAL)
[2017-11-26 21:47] LABS: APPEARANCE,URINE CLEAR (CLEAR); BACTERIA,URINE TRACE /HPF (NEGATIVE); COLOR,URINE YELLOW (YELLOW); MUCUS,URINE FEW /HPF (NEGATIVE); RBC,URINE 0-2 /HPF (NONE SEEN); SQUAMOUS EPITHELIAL CELL,UR MODERATE /HPF (NEGATIVE)
--- NOTE | 2017-11-26 21:52 | CT ---
HISTORY: Abdominal swelling and left-sided abdominal pain Study: CT abdomen and pelvis without contrast Comparison: 09/28/2017 Technique: Multiple axial images of the abdomen and pelvis were obtained from the lung bases to the level of the ischial tuberosities without the administration of IV contrast. Reformatted coronal and sagittal ok nancy were produced. Findings: The lung bases are clear. Imaging of the abdomen and pelvis demonstrates wall thickening involving the distal descending and pr oximal sigmoid colon. There is pericolonic inflammatory stranding and infiltration as well. These fin dings are superimposed upon a background of colonic diverticulosis. Therefore, these inflammatory wandy nges are most consistent with acute diverticulitis. No fluid collection is identified to suggest absc ess. No extraluminal free air is visualized. There is a small amount of free fluid within the pelvis. The appendix is normal in appearance and without inflammatory change. A small fat containing left in guinal hernia is incidentally noted. There is a moderate to large-sized hiatal hernia present. The pa tient is status post cholecystectomy. Within the left hepatic lobe there is a poorly marginated 2.1 c m low attenuating lesion which is stable in size when compared to prior exam and may represent a hepa tic cyst. There is no intrahepatic ductal dilatation appreciated. The pancreas, spleen, bilateral adr enal glands, and bilateral kidneys are grossly unremarkable. The urinary bladder is incompletely dist ended but grossly unremarkable. The bony structures are intact. Lumbar spondylosis is noted IMPRESSION: 1. Findings most consistent with acute diverticulitis involving the distal descending and proximal si gmoid colon without abscess or extraluminal free air identified. 2. Moderate to large-sized hiatal hernia. Reported By:
== END 2017-11-26 22:17 | disposition home or self-care (01) ==
LOC: ER 20:11
DX: K57.32 Diverticulitis of large intestine without perforation or abscess without bleeding (principal); K44.9 Diaphragmatic hernia without obstruction or gangrene; R10.32 Left lower quadrant pain; R14.0 Abdominal distension (gaseous); Z95.0 Presence of cardiac pacemaker; M79.7 Fibromyalgia
CPT/HCPCS: 36415; 74176; 80053; 81001; 82150; 83690; 85025; 99283